=== PATIENT | female | born 1955 | race Caucasian/White ===

== ENCOUNTER 2019-07-19 12:35 | Inpatient (IN) | payer BC, OTHER ==
[~2019-07-19] VITALS: Ht 177.8 cm; Wt 77.1 kg
--- NOTE | 2019-07-19 13:00 | NUR ---
patient BIBRA, per sister, c/o auditory and visual hallucinations. On room air, breathing evenly and unlabored, connected to the monitor and pulse ox. kept comfortable, will continue to monitor accordingly.
[2019-07-19 13:29] LABS: BASOPHILS % (AUTO) 0.7 % (0.0-2.0); EOSINOPHILS % (AUTO) 2.1 % (0.0-6.0); HEMATOCRIT 39 % (33-45); HEMOGLOBIN 12.7 g/dL (11.5-14.8); LYMPHOCYTES # (AUTO) 1.5 /CMM (0.8-4.8); LYMPHOCYTES % (AUTO) 22.6 % (20.0-44.0); MEAN CORPUSCULAR HGB CONC 33 g/dl (31.0-36.0); MEAN CORPUSCULAR VOLUME 86 fL (82-100); MONOCYTES # (AUTO) 0.4 /CMM (0.1-1.30); MONOCYTES % (AUTO) 6.7 % (2.0-12.0); NEUTROPHILS # (AUTO) 4.6 /CMM (1.8-8.9); NEUTROPHILS % (AUTO) 67.9 % (43.0-81.0); PLATELET COUNT (AUTO) 231 /CMM (150-450); RED BLOOD CELL COUNT(AUTO) 4.51 MIL/uL (4.0-5.2); WHITE BLOOD COUNT (AUTO) 6.7 K/uL (4.3-11.0)
[2019-07-19 13:37] LABS: CALCIUM, SERUM 9.5 mg/dL (8.5-10.1); CARBON DIOXIDE 23 mmol/L (21-32); CHLORIDE 107 mmol/L (98-107); CREATININE 0.8 mg/dL (0.6-1.3); GLUCOSE 117 mg/dL (74-106); POTASSIUM 3.3 mmol/L (3.5-5.1); SODIUM SERUM 145 mmol/L (136-145); UREA NITROGEN, BLOOD 18 mg/dL (7-18)
--- NOTE | 2019-07-19 13:39 | NUR ---
sister at bedside.
[2019-07-19 13:44] LABS: ALANINE AMINOTRANSFERASE 22 U/L (12-78); ALCOHOL, BLOOD < 3 mg/dL (0-0); ALKALINE PHOSPHATASE 156 U/L (46-116); ASPARTATE AMINOTRANSFERASE 19 U/L (15-37); BILIRUBIN,DIRECT 0.1 mg/dL (0.0-0.2); BILIRUBIN,TOTAL 0.5 mg/dL (0.2-1.0); SALICYLATE 2.1 mg/dL (2.8-20.0); TOTAL PROTEIN, SERUM 7.3 g/dL (6.4-8.2)
[2019-07-19 13:45] LABS: ACETAMINOPHEN 0 ug/ml (10-30)
[2019-07-19] MEDS ORDERED: LORAZEPAM INJ 2 MG/ML VIAL IM ONE (14:00)
[2019-07-19] MEDS ORDERED: OLANZAPINE 10 MG VIAL IM ONE ×2 (14:00→14:04)
[2019-07-19] MEDS ORDERED: ACETAMINOPHEN ES 500 MG TABLET PO ONE (14:00)
[2019-07-19] MEDS ORDERED: ACETAMINOPHEN ES 500 MG TABLET ONE (14:04)
[2019-07-19] MEDS ORDERED: LORAZEPAM INJ 2 MG/ML VIAL ONE (14:04)
[2019-07-19] MEDS ORDERED: POTASSIUM CHLORIDE 20 MEQ TAB.PRT.SR PO ONE (14:30)
[2019-07-19 14:55] LABS: APPEARANCE,URINE Clear (CLEAR); BILIRUBIN,URINE SMALL (NEGATIVE); BLOOD, URINE Trace-lysed Ery/uL (NEGATIVE); COLOR,URINE Yellow (YELLOW); KETONES,URINE 40 (NEGATIVE); LEUKOCYTE ESTERASE ,URINE Negative (NEGATIVE); NITRITE, URINE Negative (NEGATIVE); PH,URINE 5.5 (5.0-8.0); PROTEIN,URINE Negative (NEGATIVE); UGLUCOSE Negative (NEGATIVE); UROBILINOGEN,URINE 0.2 EU/dL (0.2)
[2019-07-19 14:56] LABS: BACTERIA,URINE Few /HPF (None Seen); SQUAMOUS EPITHELIAL CELL,UR Few /HPF (None Seen)
[2019-07-19] MEDS ORDERED: PREG100C55 PO (16:20)
[2019-07-19] MEDS ORDERED: AMIT100T2 PO (16:20)
[2019-07-19] MEDS ORDERED: ARIP5TAB10 PO (16:20)
[2019-07-19] MEDS ORDERED: SERT100T12 PO (16:20)
[2019-07-19] MEDS ORDERED: DULO60CA64 PO (16:20)
--- NOTE | 2019-07-19 16:28 | NUR ---
STONE consulted with Dawood in intake regarding possible admission to [facility]. Per Dawood she contacted pt's insurance and they will authorize for pt. to be admitted to [facility]. STONE informed NYASIA Urena in ED and spoke with lead applier Matilda regarding involuntary admission to [facility]. STONE also informed Matilda that Dawood in intake has approval from pt's insurance for approval.
--- NOTE | 2019-07-19 18:35 | NUR ---
GOT BED 214-B
--- NOTE | 2019-07-19 19:37 | NUR ---
Report given to Faa RN for brooklynn.
--- NOTE | 2019-07-19 20:30 | NUR ---
PT WAS TRANSFERRED TO [facility] IN STABLE CONDITION
[2019-07-19] MEDS ORDERED: BLOOD SUGAR DIAGNOSTIC 1 EACH STRIP IN ONE (21:00)
[2019-07-19] MEDS ORDERED: MAGNESIUM HYDROXIDE 30 ML UDC PO PRN (21:00)
[2019-07-19] MEDS ORDERED: MAG HYDROX/AL HYDROX/SIMETH 30 ML UDC PO PRN (21:00)
[2019-07-19] MEDS ORDERED: ACETAMINOPHEN 325 MG TABLET PO PRN (21:00)
[2019-07-20 01:50] VITALS: BP 149/78
--- NOTE | 2019-07-20 02:11 | NUR ---
GPS EYEGLASS FRAMES INSPECTOR NOTE: RECEIVED A 63 Y/O FEMALE FROM ER INITIALLY FROM HOME. PT ARRIVED ON THIS UNIT AT 2034 VIA STRETCHER WITH 2 ER ESCORTS. PT ADMITTED ON 5149 FOR GD PLACED 07/19/2019 @ 1735. PER HOLD PT WAS BROUGHT TO ER BY AMBULANCE FOR PSYCHIATRIC EVALUATION BECAUSE PT WANDERED OFF FROM HOME WERE SHE LIVES WITH HER ELDERLY MOTHER IN [place]. PT WAS ACTING BIZARRE, PARANOID AND HALLUCINATING. PT WALKED A LONG DISTANCE FROM HOME TO BED, BATH AND BEYOND STORE AND BEGAN RANTING AND YELLING AT STAFF AND CUSTOMERS. WHEN A NEIGHBOR FRIEND LOCATED PT, SHE COULDN'T RECOGNIZE THE NEIGHBOR, INSTEAD SHE ACCUSED THE NEIGHBOR OF WANTING TO HURT HER. PT ALSO LOCKED HERSELF IN HER BATHROOM AT HOME TALKING TO UNSEEN PEOPLE. PT HAS HISTORY OF MENTAL ILLNESS AND WAS RECENTLY DISCHARGED FROM [facility]. UPON FACE TO FACE EVALUATION, PT PRESENTS A/O X2, APPEARS DEPRESSED, UNCOOPERATIVE, IRRITABLE, LABILE, COMMANDING, NEEDY, RESPONDING TO INTERNAL STIMULI, PARANOID, DISHEVELED, AMBULATORY WITH UNSTEADY GAIT. REPORTS SHE HAS HEARING DIFFICULTY, ASKING STAFF "WHY DID YOU LET ME WALK ON THE STREET WITHOUT SHOES, THIS IS NOT FARE". PT REDIRECTABLE. NO S/S OF ACUTE DISTRESS, DENIES SI, AT THIS TIME. DENIES ANY PAIN OR ANXIETY. WHEN ASKED WHY SHE'S HERE, PT STATED " I DON'T WANT TO BE DISTURBED". PT BREATHING IS EVEN AND UNLABORED WITH EQUAL RISE AND FALL OF THE CHEST WITH SPO2 OF 96%. PT HAS NKA AND IS FULL CODE. PT HISTORY INCLUDES HTN, NERVE PAIN AND PSYCHOSIS. PT REFUSED TO SIGN ADMISSION PAPERS. PT BELONGING AND CONTRABAND WERE CHECKED, PT HAS NO CONTRABAND. PT ADVISED OF HOLD. PT RIGHTS DISCUSSED AND PT HANDBOOK PROVIDED. GUIDE TO PRESCRIPTION MEDICATION GIVEN. PT WILL BE UNDER THE CARE OF DR CAREY PSYCHIATRIST [facility]. PT ORIENTED TO UNIT, STAFF, DOCTORS, CARE PLAN AND UNIT POLICIES. BOTH DOCTORS NOTIFIED OF PT ADMISSION AND MED RECONCILIATION DONE. ACCU CHEK DONE, BS 73, MRSA BOTH NARES DONE AND PLACED FOR LAB COLD HEADER OPERATOR. FALL PRECAUTION INITIATED, SAFETY PRECAUTION INITIATED WITH Q 15MINUTES OBSERVATION. BED IN LOW LOCKED POSITION, SIDE RAILS UP X2. PT NEEDS MET. WILL CONTINUE TO MONITOR FOR SAFETY, MOOD AND BEHAVIOR AND ENDORSE TO AM NURSE.
--- NOTE | 2019-07-20 03:10 | NUR ---
GPS RN NOTE PT WANTS HER HOSPITALIZATION CONFIDENTIAL. SHE DOES NOT WANT ANYONE TO KNOW ABOUT HER ADMISSION. PT EVAL AND WOUND EVAL ORDERED.
[2019-07-20 08:00] VITALS: BP 140/74
--- NOTE | 2019-07-20 10:07 | NUR ---
WOUND CARE CONSULT: PT SCREAMING "GET OUT" AND REFUSING SKIN ASSESSMENT. PER ADMISSION PHOTOS, BRUISING AND DISCOLORATION NOTED TO BUTTOCKS WELL FOOT WOUNDS, PRESENT ON ADMISSION. RECOMMEND DPM CONSULT. DR YANG NOTIFIED OF CONSULT REQUEST. WILL SEE PT PT CONDITION PERMITS. MD IN AGREEMENT WITH PLAN OF CARE.
[2019-07-20] MEDS ORDERED: Z GUARD REMEDY 2 OZ OINT TP PRN (10:30)
--- NOTE | 2019-07-20 11:05 | NUR ---
PODIATRY AND WD NURSE IN TO SEE ALLISON OFTEN WHEN STAFF ENTER RM.
--- NOTE | 2019-07-20 11:33 | NUR ---
REFUSED AM LAB WORK.
--- NOTE | 2019-07-20 13:15 | NUR ---
Family Contact: SW returned the call of the pts sister, Janice ([phone]), and informed her that the pt is in the hospital and that the pt is claiming to be blind and deaf and so the SW was unable to conduct the assessment with her. SW received collateral information from the sister and then went on to discuss discharge planning. SW was informed that the pt lives with her mother but that the mother is unable to care for the pt at this time. Pts sister stated that the family is considering an Assisted Living placement and SW stated that she will assist.
--- NOTE | 2019-07-20 13:30 | NUR ---
Family Contact: Pt refused to have the staff contact her family members but as the pt is on a hold as gravely disabled, per [facility] guidelines, SW may contact the pts family.
--- NOTE | 2019-07-20 15:35 | NUR ---
UR Note: DEMARCUS faxed a clinical to [facility]/ [employer] with attn to Shareena to the fax number: [phone].
[2019-07-20 16:00] VITALS: BP 135/80
--- NOTE | 2019-07-20 16:21 | NUR ---
GROUP NOTE: DEMARCUS encouraged pt to participate in group therapy on this present day discussing "discharge planning." Pt was present and said "I don't want to say anything." Pt then walked away from group. Pt kept coming in and out and was being disruptive towards group. Addendum: 07/20/19 at 1625 by HOLLIE TRACY ERROR NOTE: Addendum: 07/20/19 at 1626 by HOLLIE TRACY Pt not appropriate for group at this time as she is verbally aggressive and spitting at staff, yelling and screaming.
--- NOTE | 2019-07-20 18:30 | NUR ---
YELLING OUT LOUD MOST OF DAY,BELLIGERENT AND NON COMPLIANT,AWAITING TO BE SEEN BY PSYCH. .
--- NOTE | 2019-07-20 19:25 | NUR ---
GPS RN OPENING NOTES PATIENT SITTING ON A CHAIR, ALERT AND ORIENTED X 2. BREATHING REGULAR AND UNLABORED ON ROOM AIR. NO S/S OF PAIN/DISCOMFORT NOTED AT THIS TIME. UNCOOPERATIVE, VERBALLY AGGRESSIVE AND ATTENTION SEEKER. REFUSED MEDICATIONS AND VITAL SIGNS TAKING. WILL CONTINUE TO MONITOR FOR SAFETY AND BEHAVIOR.
[2019-07-20] MEDS: ARIPIPRAZOLE 5 MG TABLET PO SCH (21:30)
--- NOTE | 2019-07-20 21:45 | NUR ---
GPR SN NOTES SEEN AND EXAMINED BY .
--- NOTE | 2019-07-21 01:20 | NUR ---
GPS RN NOTES PATIENT REFUSED DUE ABILIFY, RISK AND BENEFITS EXPLAINED.
--- NOTE | 2019-07-21 06:15 | NUR ---
GPS RN CLOSING NOTES PATIENT IN BED ASLEEP WITH NO S/S OF DISTRESS NOTED. NO S/S OF PAIN/DISCOMFORT OBSERVED. WILL ENDORSE TO MORNING SHIFT FOR CONTINUITY OF CARE.
[2019-07-21] MEDS: ARIPIPRAZOLE 5 MG TABLET PO SCH ×3 (08:26→16:59)
[2019-07-21] MEDS: SERTRALINE HCL 50 MG TABLET PO SCH ×2 (08:28→09:00)
--- NOTE | 2019-07-21 09:12 | NUR ---
Initial Discharge Plan: Pt currently resides in her mothers home with her mother located at [address] [place] [address]; ([phone]). Per pts sister, Janice ([phone]), the family is considering at Assisted Living placement. SW will work with the pt and the MD regarding appropriate discharge planning. SW will form a safe and proper discharge.
--- NOTE | 2019-07-21 09:16 | NUR ---
RN NOTES PATIENT REFUSED AM SCHEDULED MEDICATION, PATIENT STATE "I AM HOW I CAN TAKE MEDICATION". OFFERED X3 STILL REFUSED. DR RUIZ NOTIFIED.
--- NOTE | 2019-07-21 14:48 | NUR ---
Family Contact: Pts sister, Janice ([phone]), called the SW and stated that she is interested in working with a placement agency so the SW referred her to [facility].
--- NOTE | 2019-07-21 14:48 | NUR ---
UR Note: DEMARCUS faxed a clinical to [facility]/ [employer] with attn to Shareena to the fax number: [phone].
--- NOTE | 2019-07-21 15:03 | NUR ---
Group Note: Pt was encouraged to attend group therapy on 07/21/19 at 2pm discussing social supports. Pt appeared to be confused, disoriented and disorganized. Pt was verbally aggressive with the SW and stated that she cannot see or hear anything and so she cannot participate. SW deemed the pt inappropriate for group due to her current state of hao.
[2019-07-21 16:03] LABS: CHOLESTEROL 262 mg/dL (<200); HDL CHOLESTEROL 46 mg/dL (40-60); LDL 174 mg/dL (0-99); TRIGLYCERIDES 238 mg/dL (30-150)
[2019-07-21] MEDS: DIVALPROEX SODIUM 125 MG CAP.SPRINK PO SCH (16:59)
[2019-07-21] MEDS ORDERED: DIVALPROEX SODIUM 250 MG TABLET.DR PO SCH (17:00)
[2019-07-21 20:00] VITALS: BP 146/77
[2019-07-21] MEDS: LORAZEPAM 0.5 MG TABLET PO PRN (20:31)
[2019-07-21] MEDS: PREGABALIN 100 MG CAPSULE PO SCH (21:11)
[2019-07-22 06:59] LABS: CREATININE 0.6 mg/dL (0.6-1.3); POTASSIUM 3.5 mmol/L (3.5-5.1)
[2019-07-22 08:00] VITALS: BP 120/65
[2019-07-22] MEDS: PREGABALIN 100 MG CAPSULE PO SCH ×3 (08:15→16:28)
[2019-07-22] MEDS: ARIPIPRAZOLE 5 MG TABLET PO SCH ×2 (08:15→16:28)
[2019-07-22] MEDS: DIVALPROEX SODIUM 125 MG CAP.SPRINK PO SCH ×3 (08:15→16:28)
[2019-07-22] MEDS: SERTRALINE HCL 50 MG TABLET PO SCH (08:15)
[2019-07-22] MEDS: LORAZEPAM 0.5 MG TABLET PO PRN ×2 (10:27→20:12)
--- NOTE | 2019-07-22 11:48 | NUR ---
UR Note: DEMARCUS faxed a clinical to [facility]/ [employer] with attn to Shareena to the fax number: [phone].
--- NOTE | 2019-07-22 14:12 | NUR ---
UR Note: DEMARCUS called [employer] Patient Accounts Specialist, Natividad Ness ([phone]), and informed her that the pt is going to be on a 5250 hold as of 5:30pm today and the SW will be gone so she can send the order on Thursday.
[2019-07-22 16:00] VITALS: BP 136/72
--- NOTE | 2019-07-22 20:13 | NUR ---
GPS RN NOTE: ANXIETY PATIENT VERBALIZED THAT SHE IS FEELING ANXIOUS & RESTLESS AT THIS TIME. PT. REQUESTED TO GET ATIVAN. PRN ATIVAN 0.5 MG 1 TAB PO GIVEN.
[2019-07-22 20:54] VITALS: BP 125/68
[2019-07-22] MEDS: ATORVASTATIN 10 MG TABLET PO SCH (21:51)
[2019-07-23] MEDS: TEMAZEPAM 7.5 MG CAPSULE PO PRN ×2 (01:28→22:53)
--- NOTE | 2019-07-23 01:30 | NUR ---
GPS RN NOTE: INSOMNIA PATIENT VERBALIZED THAT SHE IS UNABLE TO SLEEP & REQUESTED TO GET SLEEPING PILL. PRN RESTORIL 7.5 MG 1 CAP PO GIVEN. WILL REASSESS FOR EFFECTIVENESS.
[2019-07-23 08:00] VITALS: BP 141/73
[2019-07-23] MEDS: SERTRALINE HCL 50 MG TABLET PO SCH (08:45)
[2019-07-23] MEDS: PREGABALIN 100 MG CAPSULE PO SCH ×3 (08:46→17:08)
[2019-07-23] MEDS: DIVALPROEX SODIUM 125 MG CAP.SPRINK PO SCH ×3 (08:46→17:08)
[2019-07-23] MEDS: ARIPIPRAZOLE 5 MG TABLET PO SCH ×2 (08:46→17:08)
[2019-07-23] MEDS: LORAZEPAM 0.5 MG TABLET PO PRN (12:07)
--- NOTE | 2019-07-23 12:10 | NUR ---
GIVEN ATIVAN 0.5 MG PO FOR NERVOUSNESS.
[2019-07-23 16:00] VITALS: BP 134/77
--- NOTE | 2019-07-23 18:16 | NUR ---
VERY COOPERATIVE AND AGREEABLE TODAY.
[2019-07-23 20:06] VITALS: BP 133/87
[2019-07-23] MEDS: ATORVASTATIN 10 MG TABLET PO SCH (21:43)
[2019-07-24 08:00] VITALS: BP 128/74
[2019-07-24] MEDS: PREGABALIN 100 MG CAPSULE PO SCH ×3 (08:25→16:14)
[2019-07-24] MEDS: SERTRALINE HCL 50 MG TABLET PO SCH (08:25)
[2019-07-24] MEDS: LORAZEPAM 0.5 MG TABLET PO PRN (08:25)
[2019-07-24] MEDS: ARIPIPRAZOLE 5 MG TABLET PO SCH ×2 (08:25→16:14)
[2019-07-24] MEDS: DIVALPROEX SODIUM 125 MG CAP.SPRINK PO SCH ×3 (08:25→16:14)
--- NOTE | 2019-07-24 09:41 | NUR ---
GPS RN NOTE: RECEIVED PATENT IN THE ROOM AMBULATORY WITH WALKER DENIES SI/HI COMPLIANT WITH MEDICATIONS AND TX PT FEELING ANXIOUS AT THIS TIME ATIVAN 0.5 MG PO PRN GIVEN PATIENT ALERT AND ORIENTEDX2.DISORGANIZE.VS STABLE. NO ACUTE DISTRESS.WILL MONITOR Q 15 MINUTES FOR SAFETY AND BEHAVIOR.
[2019-07-24 16:00] VITALS: BP 117/64
[2019-07-24 20:25] VITALS: BP 139/85
[2019-07-24] MEDS: ATORVASTATIN 10 MG TABLET PO SCH (21:12)
[2019-07-24] MEDS: TEMAZEPAM 7.5 MG CAPSULE PO PRN (21:12)
--- NOTE | 2019-07-24 21:13 | NUR ---
MS/RN NOTES Patient in bed, unable to sleep. Requested for Sleeping medication. Restoril 1 tab given as ordered. Will continue plan of care.
[2019-07-25] MEDS: LORAZEPAM 0.5 MG TABLET PO PRN ×2 (07:41→17:18)
--- NOTE | 2019-07-25 07:41 | NUR ---
RN NOTE- AGITATION/ PT W ANXIETY. REQUESTING PRN MEDE. ATIVAN 0.5 MG GIVEN
[2019-07-25 08:00] VITALS: BP 149/72
[2019-07-25] MEDS: SERTRALINE HCL 50 MG TABLET PO SCH (08:24)
[2019-07-25] MEDS: DIVALPROEX SODIUM 125 MG CAP.SPRINK PO SCH ×3 (08:25→16:29)
[2019-07-25] MEDS: ARIPIPRAZOLE 5 MG TABLET PO SCH ×2 (08:25→16:29)
[2019-07-25] MEDS: PREGABALIN 100 MG CAPSULE PO SCH ×3 (08:25→16:28)
--- NOTE | 2019-07-25 09:00 | NUR ---
RN NOTE-PT ANXIOUS AT TIMES AND IRRITABLE. RECEIVED PAITENT IN THE ROOM AMBULATORY WITH WALKER DENIES SI/HI COMPLIANT WITH MEDICATIONS AND TX PATIENT ALERT AND ORIENTEDX2. DISORGANIZED VS STABLE. NO ACUTE DISTRESS.WILL MONITOR Q 15 MINUTES FOR SAFETY AND BEHAVIOR.
--- NOTE | 2019-07-25 09:15 | NUR ---
UR Note: DEMARCUS faxed a clinical to [facility]/ [employer] with attn to Shareena to the fax number: [phone].
[2019-07-25] MEDS: IBUPROFEN 600 MG TABLET PO PRN (13:34)
--- NOTE | 2019-07-25 13:34 | NUR ---
RN NOTE- PAIN. PT C/O GENERALIZED PAIN 7-10. IBUPROFEN 600 MG [id number]
--- NOTE | 2019-07-25 14:45 | NUR ---
RN NOTE- RX EFFECTIVE AT DECREASING PAIN
[2019-07-25 16:00] VITALS: BP 150/90
--- NOTE | 2019-07-25 17:20 | NUR ---
RN NOTE-AGITATION/ PT W ANXIETY. ATIVAN 0.5 MG GIVEN
--- NOTE | 2019-07-25 19:15 | NUR ---
GPS RN opening notes Received Pt in bed and awake. Pt is alert and orientedX2, anxious, restless, disorganized, hyperverbal, confused and med compliant. Respiration is normal. No SOB. No S/S of distress noted. Offered fluids and snacks. Pt denies SI/HI at this time. Reality orientation provided. Safety precautions is maintained. Will continue to monitor for mood safety and behavior Q 15 mins checks according to [facility] hospital protocol.
[2019-07-25 20:00] VITALS: BP 131/88
[2019-07-25 20:04] VITALS: BP 131/88
--- NOTE | 2019-07-25 21:11 | NUR ---
GPS RN notes Pt will be Discharge on Thursday per Dr. Brown. Charge nurse is aware and informed.
[2019-07-25] MEDS: ATORVASTATIN 10 MG TABLET PO SCH (21:35)
[2019-07-25] MEDS: TEMAZEPAM 7.5 MG CAPSULE PO PRN (22:24)
--- NOTE | 2019-07-25 22:24 | NUR ---
GPS RN notes Pt is unable to sleep and requesting sleeping pill. Administered restoril 7.5 mg/po/1 tab as ordered for sleeping. Safety precautions is maintained. Will continue to monitor.
--- NOTE | 2019-07-26 05:00 | NUR ---
GPS RN notes Noted Pt's sacral redness. Pt stated "Police did it not the hospital." Cleaned with NS, applied z-guard. Wound care consult ordered. Will continue to monitor.
[2019-07-26] MEDS: IBUPROFEN 600 MG TABLET PO PRN ×2 (05:28→18:54)
[2019-07-26] MEDS: LORAZEPAM 0.5 MG TABLET PO PRN ×3 (05:28→18:54)
--- NOTE | 2019-07-26 05:28 | NUR ---
GPS RN notes Pt is feeling anxious and requesting medication. Administered Ativan 0.5 mg/1 tab/po as ordered for anxiety. Safety precautions is maintained. Will continue to monitor.
--- NOTE | 2019-07-26 05:29 | NUR ---
GPS RN notes Pt is complaining of pain on right lower leg and left ankle and requesting pain meds. Administered motrin 600 mg as ordered for pain. Will continue to monitor.
--- NOTE | 2019-07-26 07:00 | NUR ---
GPS RN closing notes Pt is resting in bed comfortably. Respiration is normal. No SOB. No S/S of distress noted. VS is stable. Routine meds were given as ordered. Kept Pt clean, dry and comfortable. All needs met and attended. Safety precautions is maintained. Bed at low position, brakes locked, side rails upX2. Will endorse to morning nurse for ALANA.
[2019-07-26 08:00] VITALS: BP 128/78
[2019-07-26] MEDS: DIVALPROEX SODIUM 125 MG CAP.SPRINK PO SCH ×3 (08:43→16:33)
[2019-07-26] MEDS: PREGABALIN 100 MG CAPSULE PO SCH ×3 (08:43→16:33)
[2019-07-26] MEDS: ARIPIPRAZOLE 5 MG TABLET PO SCH ×2 (08:43→16:33)
[2019-07-26] MEDS: SERTRALINE HCL 50 MG TABLET PO SCH (08:44)
[2019-07-26] MEDS: Z GUARD REMEDY 2 OZ OINT TP SCH ×2 (08:44→16:33)
--- NOTE | 2019-07-26 09:19 | NUR ---
WOUND CARE CONSULT: PT PRESENTS WITH DRY LESION TO RT BUTTOCK. PT DENIES TENDERNESS. RN TO DISCUSS WITH MD TODAY. DISCUSSED WITH NURSING STAFF AND SLOT OPERATIONS DIRECTOR. PHOTO WAS TAKEN. FADING BRUISES ALSO NOTED TO BUTTOCKS, LEFT WAIST AREA, PRESENT ON ADMISSION. DEFER TO PODIATRY FOR LOWER EXTREMITIES. PT IS CONTINENT AND AMBULATORY. WILL SEE PRN.
--- NOTE | 2019-07-26 10:11 | NUR ---
GPS RN OPENING NOTE: RECEIVED PATIENT IN THE ROOM AMBULATORY WITH WALKER DENIES SI/HI COMPLIANT WITH MEDICATIONS. PATIENT IS DISORGANZIED. BRIGHT AFFECT. HARD OF HEARING. VSS. BREATHING EVEN AND UNLABORED. ENVIRONMENTAL CHECKS DONE AND SAFETY PRECAUTIONS OBSERVED. WILL CONTINUE TO MONITOR Q15 FOR MOOD, SAFETY AND BEHAVIOR
--- NOTE | 2019-07-26 10:15 | NUR ---
UR Note: DEMARCUS faxed a clinical to [facility]/ [employer] with attn to Shareena to the fax number: [phone].
--- NOTE | 2019-07-26 10:16 | NUR ---
Family Contact: SW called the pts sister, Janice ([phone]), and left her a voicemail stating that the pt will have to be discharged home tomorrow and that we cannot place her in an Assisted Living without her permission when her funds would be used towards the placement.
--- NOTE | 2019-07-26 14:25 | NUR ---
Family Contact: DEMARCUS called the pts sister, Janice ([phone]), and left her a voicemail stating that the pt will have to be discharged home tomorrow.
--- NOTE | 2019-07-26 14:37 | NUR ---
Family Contact: SW called the pts home number ([phone]) and spoke to the pts mother who stated that she would inform the pts sister about the discharge tomorrow. DEMARCUS stated that the pt will be going home and that the SW needs to know about the discharge plan.
[2019-07-26 16:00] VITALS: BP 124/63
--- NOTE | 2019-07-26 16:01 | NUR ---
Group Note: SW encouraged pt to attend group therapy on 07/26/19 at 2pm discussing reality testing regarding their admission. Pt stated that she did not want to participate because she is deaf and blind. She stated that she is being discharged the following day and therefore she would like to remain in her room.
--- NOTE | 2019-07-26 21:30 | NUR ---
RN NOTES Pt REFUSED FOR VITAL SIGNS TO BE TAKEN.
--- NOTE | 2019-07-26 21:50 | NUR ---
RN NOTES AT CHANGE OF SHIFT Pt REQUESTED FOR A SLEEPING PILL FOR EMY, SAYING SHE HASN'T HAD ANY SLEEP FOR THE PAST 4 DAYS. WHEN I CAME INTO THER ROOM TO GIVE HER NIGHT MEDS, Pt WAS ALREADY ASLEEP. HAD TO WAKE Pt UP TO GIVE HER SCHEDULED LIPITOR, AND ASKED HER IF SHE STILL WANTED HER SLEEPING PILL, AND SHE SAID "NO I THINK I WILL BE FINE WITHOUT IT, I WAS ACTUALLY SLEEPING PRETTY GOOD." SO I RETURNED THE RESTORIL BACK TO THE [facility] WITH TRAM CARIAS MY WITNESS.
[2019-07-26] MEDS: ATORVASTATIN 10 MG TABLET PO SCH (22:13)
[2019-07-26] MEDS: TEMAZEPAM 7.5 MG CAPSULE PO PRN (23:04)
--- NOTE | 2019-07-26 23:10 | NUR ---
RN NOTES Pt CHANGED HER MIND ABOUT THE RESTORIL AND WAS ASKING FOR IT AGAIN, SAID THAT ONCE I WOKE HER UP SHE WASN'T ABLE TO FALL BACK ASLEEP.
[2019-07-27 08:00] VITALS: BP 132/79
--- NOTE | 2019-07-27 08:05 | NUR ---
Discharge Plan: SW was told by the nurses that the pts sister called the previous night after the SW had left and had stated that the pt will be picked up around 7pm.
[2019-07-27] MEDS: DIVALPROEX SODIUM 125 MG CAP.SPRINK PO SCH ×3 (08:50→16:45)
[2019-07-27] MEDS: LORAZEPAM 0.5 MG TABLET PO PRN ×2 (08:50→15:23)
[2019-07-27] MEDS: SERTRALINE HCL 50 MG TABLET PO SCH (08:50)
[2019-07-27] MEDS: ARIPIPRAZOLE 5 MG TABLET PO SCH ×2 (08:50→16:45)
[2019-07-27] MEDS: PREGABALIN 100 MG CAPSULE PO SCH ×3 (08:50→16:45)
[2019-07-27] MEDS: IBUPROFEN 600 MG TABLET PO PRN (08:50)
[2019-07-27] MEDS: Z GUARD REMEDY 2 OZ OINT TP SCH ×2 (08:51→16:52)
--- NOTE | 2019-07-27 09:42 | NUR ---
GPS RN OPENING NOTE: RECEIVED PAITENT IN THE ROOM AMBULATORY WITH WALKER DENIES SI/HI COMPLIANT WITH MEDICATIONS. PATIENT IS DISORGANZIED. BRIGHT AFFECT. HARD OF HEARING. VSS. BREATHING EVEN AND UNLABORED. ENVIRONMENTAL CHECKS DONE AND SAFETY PRECAUTIONS OBSERVED.D/C PLANNED FOR TODAY AROUND 1900. WILL CONTINUE TO MONITOR Q15 FOR MOOD, SAFETY AND BEHAVIOR
--- NOTE | 2019-07-27 10:57 | NUR ---
UR Note: DEMARCUS called [employer] Logistic Specialist, Natividad Ness ([phone]), and informed her that the pt is going to be discharged today and that the SW was wondering if the pt has a psychiatrist through their coverage. DEMARCUS asked for a return call.
--- NOTE | 2019-07-27 11:16 | NUR ---
DR. CAREY GAVE AN ORDER TO D/C HOLD AND D/C HOME AND TO FOLLOW UP WITH PSYCH AND MEDICAL DOCTORS.
--- NOTE | 2019-07-27 11:29 | NUR ---
UR Note: [employer] Validation Specialist, Natividad Ness ([phone]), called the SW and provided her with the aftercare appointments for the pt.
--- NOTE | 2019-07-27 11:31 | NUR ---
UR Note: DEMARCUS faxed a clinical to [facility]/ [employer] with attn to Shareena to the fax number: [phone].
--- NOTE | 2019-07-27 14:13 | NUR ---
Discharge Note: Pt was discharged to her mothers home located at [address], [address] [facility] [address], [place] [address]; ([phone]). Pts sister, Janice ([phone]), was contacted about the discharge and she picked up the pt at 7pm. Upon discharge, the pt appeared to be in a euthymic mood and presented with an agitated affect. Pt appeared to be oriented x3 (time, self and place). Pt denied both suicidal and homicidal ideation as well as auditory and visual hallucinations. Pt will follow up her psychiatrist, Dr. Ramiro Larose, located at [address] [place] [address]; . Pt has an appointment on 10/04/19 at 3:30pm. Pt will also follow up with her template clerk, Dr. Catie Tuttle, located at [id number] [place] [address] [address], [place] [address]; ([phone]); and a fax of records was sent to: ([phone]). Pt has an appointment on 08/09/19 at 1pm.
[2019-07-27 16:00] VITALS: BP 143/79
--- NOTE | 2019-07-27 19:28 | NUR ---
GPS TECHNOLOGY SERVICES MANAGER NOTE: PATIENT IS A 63 YEAR OLD FEMALE DISCHARGED TO HOME. PATIENT IS IN STABLE CONDITION. VSS. NO ACUTE DISTRESS NOTED. NO COMPLAINTS. COMPLIANT WITH MEDICATION MANAGEMENT. COOPERATIVE WITH PLAN OF CARE. PSYCHIATRIC TREATMENT PLANS MET. MEDICAL TREATMENT PLANS DEFERRED FOR CONTINUAL MONITORING. DENIES SI/HI VAH AT THE TIME OF DISCHARGE. SKIN CHECK DONE WITH WOUND PICTURES IN CHART. EDUCATED PATIENT ABOUT AFTERCARE WITH COPY PROVIDED. RETURNED PERSONAL BELONGINGS TO PATIENT. MEDICATIONS RECONCILED WITH DR CAREY ALONG WITH PSYCHIATRIC DISCHARGE ORDERS. MEDICAL MEDICATIONS RECONCILED WITH DR LENZ. DISCHARGE PAPERWORK SIGNED. FOR FOLLOW UP WITH PSYCHIATRIST AND CONCESSION WORKER WITHIN 1 WEEK. PATIENT LEFT THE [facility] VIA PRIVATE CAR ACCOMPANIED BY SISTER FOR ALANA
== END 2019-07-27 20:29 | disposition home or self-care (01) | DRG 885 ==
LOC: ER 12:37 → GPS 18:43
PROVIDERS: ADMIT Psychiatry & Neurology Psychiatry; ATTEND Nurse Practitioner Acute Care
DX: F25.9 Schizoaffective disorder, unspecified (principal); I10 Essential (primary) hypertension; E78.5 Hyperlipidemia, unspecified; E87.6 Hypokalemia; M20.41 Other hammer toe(s) (acquired), right foot; M20.42 Other hammer toe(s) (acquired), left foot; H91.90 Unspecified hearing loss, unspecified ear; Z73.6 Limitation of activities due to disability; R23.4 Changes in skin texture; L89.896 Pressure-induced deep tissue damage of other site
CPT/HCPCS: 36415; 80048-TC; 80061-TC; 80076-TC; 80164-TC; 80305; 81000-TC; 82962-TC; 85025-TC; 87081-TC; G0480; J2060; J3490

== ENCOUNTER 2019-08-01 18:03 | Inpatient (IN) | payer BC, OTHER ==
[~2019-08-01] VITALS: Ht 165.1 cm; Wt 77.1 kg
[~2019-08-01 18:03] MED LIST: PREG100C55 PO
[2019-08-01 18:32] LABS: BASOPHILS # (AUTO) 0.1 /CMM (0.0-0.2); BASOPHILS % (AUTO) 1.1 % (0.0-2.0); EOSINOPHILS % (AUTO) 1.2 % (0.0-6.0); HEMATOCRIT 37 % (33-45); HEMOGLOBIN 11.9 g/dL (11.5-14.8); LYMPHOCYTES # (AUTO) 1.8 /CMM (0.8-4.8); LYMPHOCYTES % (AUTO) 31.9 % (20.0-44.0); MEAN CORPUSCULAR HGB CONC 32 g/dl (31.0-36.0); MEAN CORPUSCULAR VOLUME 87 fL (82-100); MONOCYTES # (AUTO) 0.5 /CMM (0.1-1.30); MONOCYTES % (AUTO) 8.7 % (2.0-12.0); NEUTROPHILS # (AUTO) 3.3 /CMM (1.8-8.9); NEUTROPHILS % (AUTO) 57.1 % (43.0-81.0); PLATELET COUNT (AUTO) 220 /CMM (150-450); RED BLOOD CELL COUNT(AUTO) 4.22 MIL/uL (4.0-5.2); WHITE BLOOD COUNT (AUTO) 5.8 K/uL (4.3-11.0)
[2019-08-01 19:14] LABS: ALANINE AMINOTRANSFERASE 24 U/L (12-78); ALBUMIN 3.5 g/dL (3.4-5.0); ALCOHOL, BLOOD < 3 mg/dL (0-0); ALKALINE PHOSPHATASE 114 U/L (46-116); ASPARTATE AMINOTRANSFERASE 28 U/L (15-37); BILIRUBIN,DIRECT 0.1 mg/dL (0.0-0.2); BILIRUBIN,TOTAL 0.4 mg/dL (0.2-1.0); CALCIUM, SERUM 8.7 mg/dL (8.5-10.1); CARBON DIOXIDE 25 mmol/L (21-32); CHLORIDE 109 mmol/L (98-107); CREATININE 0.9 mg/dL (0.6-1.3); GLUCOSE 101 mg/dL (74-106); POTASSIUM 3.7 mmol/L (3.5-5.1); SODIUM SERUM 145 mmol/L (136-145); TOTAL PROTEIN, SERUM 6.6 g/dL (6.4-8.2); UREA NITROGEN, BLOOD 10 mg/dL (7-18)
[2019-08-01 19:29] LABS: ACETAMINOPHEN < 2 ug/ml (10-30); SALICYLATE 1.6 mg/dL (2.8-20.0)
[2019-08-01 19:35] LABS: APPEARANCE,URINE Clear (CLEAR); BILIRUBIN,URINE Negative (NEGATIVE); BLOOD, URINE Negative Ery/uL (NEGATIVE); COLOR,URINE Yellow (YELLOW); KETONES,URINE Negative (NEGATIVE); LEUKOCYTE ESTERASE ,URINE Negative (NEGATIVE); NITRITE, URINE Negative (NEGATIVE); PROTEIN,URINE Negative (NEGATIVE); UGLUCOSE Negative (NEGATIVE); UROBILINOGEN,URINE 0.2 EU/dL (0.2)
[2019-08-01] MEDS ORDERED: IV NS 0.9% 1,000 ML BAG IV ONE (20:30)
[2019-08-01] MEDS ORDERED: DIVALPROEX SODIUM 250 MG TABLET.DR PO STA (22:34)
[2019-08-01] MEDS ORDERED: ARIPIPRAZOLE 2 MG TABLET ONE (22:40)
[2019-08-01] MEDS ORDERED: DIVALPROEX SODIUM 250 MG TABLET.DR PO ONE (22:40)
[2019-08-01] MEDS ORDERED: LORAZEPAM INJ 2 MG/ML VIAL ONE (22:46)
[2019-08-01] MEDS ORDERED: LORAZEPAM INJ 2 MG/ML VIAL IM STA (22:50)
[2019-08-01] MEDS: ARIPIPRAZOLE 5 MG TABLET PO SCH (22:51)
[2019-08-01] MEDS ORDERED: OLANZAPINE 10 MG VIAL IM ONE ×2 (23:06→23:30)
[2019-08-02] MEDS ORDERED: MAGNESIUM HYDROXIDE 30 ML UDC PO PRN
[2019-08-02] MEDS ORDERED: ACETAMINOPHEN 325 MG TABLET PO PRN
[2019-08-02] MEDS ORDERED: BLOOD SUGAR DIAGNOSTIC 1 EACH STRIP IN ONE
[2019-08-02] MEDS ORDERED: MAG HYDROX/AL HYDROX/SIMETH 30 ML UDC PO PRN
[2019-08-02 03:00] VITALS: BP 130/74
[2019-08-02 06:45] LABS: BASOPHILS % (AUTO) 0.6 % (0.0-2.0); EOSINOPHILS % (AUTO) 0.7 % (0.0-6.0); HEMATOCRIT 38 % (33-45); HEMOGLOBIN 12.3 g/dL (11.5-14.8); LYMPHOCYTES % (AUTO) 37.4 % (20.0-44.0); MEAN CORPUSCULAR HGB CONC 33 g/dl (31.0-36.0); MEAN CORPUSCULAR VOLUME 87 fL (82-100); MONOCYTES # (AUTO) 0.6 /CMM (0.1-1.30); MONOCYTES % (AUTO) 10.1 % (2.0-12.0); NEUTROPHILS # (AUTO) 2.8 /CMM (1.8-8.9); NEUTROPHILS % (AUTO) 51.2 % (43.0-81.0); PLATELET COUNT (AUTO) 198 /CMM (150-450); RED BLOOD CELL COUNT(AUTO) 4.31 MIL/uL (4.0-5.2); WHITE BLOOD COUNT (AUTO) 5.5 K/uL (4.3-11.0)
[2019-08-02 07:15] LABS: ALBUMIN 3.4 g/dL (3.4-5.0); BILIRUBIN,TOTAL 0.3 mg/dL (0.2-1.0); CALCIUM, SERUM 8.4 mg/dL (8.5-10.1); CREATININE 0.9 mg/dL (0.6-1.3); POTASSIUM 3.7 mmol/L (3.5-5.1); TOTAL PROTEIN, SERUM 6.4 g/dL (6.4-8.2)
[2019-08-02 08:00] VITALS: BP 109/62
[2019-08-02] MEDS: ARIPIPRAZOLE 5 MG TABLET PO SCH ×2 (08:47→17:00)
[2019-08-02] MEDS ORDERED: ATOR20TA PO (09:40)
[2019-08-02] MEDS: PREGABALIN 100 MG CAPSULE PO SCH ×2 (12:02→17:01)
[2019-08-02] MEDS: SERTRALINE HCL 50 MG TABLET PO SCH (17:00)
[2019-08-02] MEDS: DIVALPROEX SODIUM 250 MG TABLET.DR PO SCH (17:01)
[2019-08-02] MEDS: ATORVASTATIN 10 MG TABLET PO SCH (17:01)
[2019-08-02] MEDS: IBUPROFEN 600 MG TABLET PO PRN (17:01)
[2019-08-02] MEDS: LORAZEPAM 0.5 MG TABLET PO PRN (18:34)
[2019-08-02 20:30] VITALS: BP 129/75
[2019-08-03 08:00] VITALS: BP 111/63
[2019-08-03] MEDS: ARIPIPRAZOLE 5 MG TABLET PO SCH ×2 (08:31→17:03)
[2019-08-03] MEDS: PREGABALIN 100 MG CAPSULE PO SCH ×3 (08:31→17:03)
[2019-08-03] MEDS: DIVALPROEX SODIUM 250 MG TABLET.DR PO SCH ×3 (08:31→17:03)
[2019-08-03] MEDS: SERTRALINE HCL 50 MG TABLET PO SCH (08:32)
[2019-08-03] MEDS: LORAZEPAM 0.5 MG TABLET PO PRN ×2 (08:35→20:14)
[2019-08-03 16:00] VITALS: BP 117/71
[2019-08-03] MEDS: ATORVASTATIN 10 MG TABLET PO SCH (17:05)
[2019-08-03 20:00] VITALS: BP 119/70
[2019-08-03] MEDS: TEMAZEPAM 7.5 MG CAPSULE PO PRN (22:54)
[2019-08-04] MEDS: ARIPIPRAZOLE 5 MG TABLET PO SCH ×2 (08:33→16:20)
[2019-08-04] MEDS: PREGABALIN 100 MG CAPSULE PO SCH ×3 (08:33→16:20)
[2019-08-04] MEDS: DIVALPROEX SODIUM 250 MG TABLET.DR PO SCH ×3 (08:33→16:21)
[2019-08-04] MEDS: SERTRALINE HCL 50 MG TABLET PO SCH (08:33)
[2019-08-04] MEDS: LORAZEPAM 0.5 MG TABLET PO PRN ×2 (09:17→16:25)
[2019-08-04 16:00] VITALS: BP 134/75
[2019-08-04] MEDS: ATORVASTATIN 10 MG TABLET PO SCH (17:02)
[2019-08-05 08:00] VITALS: BP 139/84
[2019-08-05] MEDS: PREGABALIN 100 MG CAPSULE PO SCH ×3 (08:20→16:14)
[2019-08-05] MEDS: SERTRALINE HCL 50 MG TABLET PO SCH (08:20)
[2019-08-05] MEDS: DIVALPROEX SODIUM 250 MG TABLET.DR PO SCH ×3 (08:20→16:14)
[2019-08-05] MEDS: ARIPIPRAZOLE 5 MG TABLET PO SCH ×2 (08:22→16:14)
[2019-08-05] MEDS: LORAZEPAM 0.5 MG TABLET PO PRN ×2 (08:42→16:29)
[2019-08-05 15:58] VITALS: BP 129/66
[2019-08-05] MEDS: ATORVASTATIN 10 MG TABLET PO SCH (17:26)
[2019-08-05 20:35] VITALS: BP 119/60
[2019-08-05] MEDS: TEMAZEPAM 7.5 MG CAPSULE PO PRN (22:20)
[2019-08-06] MEDS: LORAZEPAM 0.5 MG TABLET PO PRN ×3 (04:40→19:55)
[2019-08-06 08:00] VITALS: BP 131/76
[2019-08-06] MEDS: SERTRALINE HCL 50 MG TABLET PO SCH (08:51)
[2019-08-06] MEDS: PREGABALIN 100 MG CAPSULE PO SCH ×3 (08:51→16:11)
[2019-08-06] MEDS: DIVALPROEX SODIUM 250 MG TABLET.DR PO SCH ×3 (08:51→16:11)
[2019-08-06] MEDS: ARIPIPRAZOLE 5 MG TABLET PO SCH ×2 (08:54→16:15)
[2019-08-06 16:00] VITALS: BP 137/84
[2019-08-06] MEDS: ATORVASTATIN 10 MG TABLET PO SCH (17:19)
[2019-08-06 21:15] VITALS: BP 128/78
[2019-08-06] MEDS: TEMAZEPAM 7.5 MG CAPSULE PO PRN (23:25)
[2019-08-07] MEDS: IBUPROFEN 600 MG TABLET PO PRN (03:57)
[2019-08-07 08:00] VITALS: BP 127/66
[2019-08-07] MEDS: PREGABALIN 100 MG CAPSULE PO SCH ×3 (09:31→17:25)
[2019-08-07] MEDS: DIVALPROEX SODIUM 250 MG TABLET.DR PO SCH ×3 (09:31→17:25)
[2019-08-07] MEDS: SERTRALINE HCL 50 MG TABLET PO SCH (09:31)
[2019-08-07] MEDS: ARIPIPRAZOLE 5 MG TABLET PO SCH ×2 (09:31→17:25)
[2019-08-07] MEDS: LORAZEPAM 0.5 MG TABLET PO PRN ×2 (10:17→20:12)
[2019-08-07 16:00] VITALS: BP 136/70
[2019-08-07] MEDS: ATORVASTATIN 10 MG TABLET PO SCH (17:25)
[2019-08-07 20:22] VITALS: BP 152/84
[2019-08-07] MEDS: TEMAZEPAM 7.5 MG CAPSULE PO PRN (22:15)
[2019-08-08] MEDS: IBUPROFEN 600 MG TABLET PO PRN (01:40)
[2019-08-08] MEDS: LORAZEPAM 0.5 MG TABLET PO PRN ×2 (06:54→12:35)
[2019-08-08 08:00] VITALS: BP 142/88
[2019-08-08] MEDS: ARIPIPRAZOLE 5 MG TABLET PO SCH ×2 (08:46→17:03)
[2019-08-08] MEDS: DIVALPROEX SODIUM 250 MG TABLET.DR PO SCH ×3 (08:46→17:03)
[2019-08-08] MEDS: SERTRALINE HCL 50 MG TABLET PO SCH (08:46)
[2019-08-08] MEDS: PREGABALIN 100 MG CAPSULE PO SCH ×3 (08:46→17:03)
[2019-08-08 16:00] VITALS: BP 154/99
[2019-08-08] MEDS: ATORVASTATIN 10 MG TABLET PO SCH (17:03)
[2019-08-08 20:59] VITALS: BP 145/72
[2019-08-08] MEDS: TEMAZEPAM 7.5 MG CAPSULE PO PRN (21:46)
[2019-08-09] MEDS: IBUPROFEN 600 MG TABLET PO PRN ×2 (04:52→20:47)
[2019-08-09 08:00] VITALS: BP 119/73
[2019-08-09] MEDS: PREGABALIN 100 MG CAPSULE PO SCH ×3 (09:09→17:51)
[2019-08-09] MEDS: DIVALPROEX SODIUM 250 MG TABLET.DR PO SCH ×3 (09:09→17:51)
[2019-08-09] MEDS: SERTRALINE HCL 50 MG TABLET PO SCH (09:12)
[2019-08-09] MEDS: ARIPIPRAZOLE 5 MG TABLET PO SCH ×2 (09:12→17:51)
[2019-08-09] MEDS: LORAZEPAM 0.5 MG TABLET PO PRN (10:48)
[2019-08-09 16:00] VITALS: BP 122/59
[2019-08-09] MEDS: ATORVASTATIN 10 MG TABLET PO SCH (17:52)
[2019-08-09 21:23] VITALS: BP 147/89
[2019-08-10] MEDS: IBUPROFEN 600 MG TABLET PO PRN ×2 (05:01→22:57)
[2019-08-10 08:00] VITALS: BP 151/86
[2019-08-10] MEDS: PREGABALIN 100 MG CAPSULE PO SCH ×3 (08:51→16:59)
[2019-08-10] MEDS: SERTRALINE HCL 50 MG TABLET PO SCH (08:52)
[2019-08-10] MEDS: DIVALPROEX SODIUM 250 MG TABLET.DR PO SCH ×3 (08:52→16:59)
[2019-08-10] MEDS: ARIPIPRAZOLE 5 MG TABLET PO SCH ×2 (08:53→16:59)
[2019-08-10] MEDS: LORAZEPAM 0.5 MG TABLET PO PRN (15:11)
[2019-08-10 16:00] VITALS: BP 121/64
[2019-08-10] MEDS: ATORVASTATIN 10 MG TABLET PO SCH (18:29)
[2019-08-10 20:07] VITALS: BP 112/67
[2019-08-11] MEDS: IBUPROFEN 600 MG TABLET PO PRN ×2 (07:04→16:43)
[2019-08-11 08:00] VITALS: BP 106/75
[2019-08-11] MEDS: PREGABALIN 100 MG CAPSULE PO SCH ×3 (08:46→16:39)
[2019-08-11] MEDS: DIVALPROEX SODIUM 250 MG TABLET.DR PO SCH ×3 (08:46→16:39)
[2019-08-11] MEDS: ARIPIPRAZOLE 5 MG TABLET PO SCH ×2 (08:46→16:39)
[2019-08-11] MEDS: SERTRALINE HCL 50 MG TABLET PO SCH (08:47)
[2019-08-11] MEDS: LORAZEPAM 0.5 MG TABLET PO PRN ×2 (12:26→18:10)
[2019-08-11 16:00] VITALS: BP 109/72
[2019-08-11] MEDS: ATORVASTATIN 10 MG TABLET PO SCH (17:01)
[2019-08-11 20:10] VITALS: BP 121/73
[2019-08-11] MEDS: TEMAZEPAM 7.5 MG CAPSULE PO PRN (21:22)
[2019-08-12] MEDS: IBUPROFEN 600 MG TABLET PO PRN (06:00)
[2019-08-12 06:51] LABS: BASOPHILS % (AUTO) 0.6 % (0.0-2.0); EOSINOPHILS % (AUTO) 0.3 % (0.0-6.0); HEMATOCRIT 40 % (33-45); HEMOGLOBIN 13.4 g/dL (11.5-14.8); LYMPHOCYTES # (AUTO) 2.1 /CMM (0.8-4.8); MEAN CORPUSCULAR HGB CONC 34 g/dl (31.0-36.0); MEAN CORPUSCULAR VOLUME 86 fL (82-100); MONOCYTES # (AUTO) 0.3 /CMM (0.1-1.30); MONOCYTES % (AUTO) 6.6 % (2.0-12.0); NEUTROPHILS # (AUTO) 2.7 /CMM (1.8-8.9); NEUTROPHILS % (AUTO) 51.5 % (43.0-81.0); PLATELET COUNT (AUTO) 218 /CMM (150-450); RED BLOOD CELL COUNT(AUTO) 4.67 MIL/uL (4.0-5.2); WHITE BLOOD COUNT (AUTO) 5.2 K/uL (4.3-11.0)
[2019-08-12 08:00] VITALS: BP 125/72
[2019-08-12] MEDS: SERTRALINE HCL 50 MG TABLET PO SCH (08:08)
[2019-08-12] MEDS: ARIPIPRAZOLE 5 MG TABLET PO SCH (08:08)
[2019-08-12] MEDS: DIVALPROEX SODIUM 250 MG TABLET.DR PO SCH ×2 (08:08→13:09)
[2019-08-12] MEDS: PREGABALIN 100 MG CAPSULE PO SCH ×2 (08:08→13:09)
[2019-08-12] MEDS: LORAZEPAM 0.5 MG TABLET PO PRN (08:57)
[2019-08-12 08:58] LABS: ALBUMIN 3.7 g/dL (3.4-5.0); BILIRUBIN,TOTAL 0.3 mg/dL (0.2-1.0); CALCIUM, SERUM 9.2 mg/dL (8.5-10.1); CREATININE 0.8 mg/dL (0.6-1.3); POTASSIUM 4.4 mmol/L (3.5-5.1)
== END 2019-08-12 13:30 | DRG 885 ==
LOC: ER 18:04 → GPS 22:18
PROVIDERS: ADMIT Psychiatry & Neurology Psychiatry; ATTEND Internal Medicine
DX: F25.0 Schizoaffective disorder, bipolar type (principal); F23 Brief psychotic disorder; E87.0 Hyperosmolality and hypernatremia; I10 Essential (primary) hypertension; M19.90 Unspecified osteoarthritis, unspecified site; R79.89 Other specified abnormal findings of blood chemistry
CPT/HCPCS: 36415; 80048-TC; 80053-TC; 80061-TC; 80076-TC; 80164-TC; 80305; 81000-TC; 85025-TC; 87081-TC; 97116-TC; 97530-TC; G0480; J2060; J3490; J7030

== ENCOUNTER 2020-01-22 19:52 | Inpatient (IN) | payer BC, OTHER ==
[~2020-01-22] VITALS: Ht 167.6 cm; Wt 70.3 kg
[~2020-01-22 19:52] MED LIST changes: +ATOR20TA PO
--- NOTE | 2020-01-22 20:15 | NUR ---
BIBRA 878 "FOUND AT MOTHERS APT CRAWLING THE STAIRS" C/O BODY PAIN. PT LOOKS CONFUSED , CONSTANTLY SCREAMING, STATED SHE CAN NOT HEAR AND SHE CAN NOT SEE ANYTHING. PT WAS PLACED ON A MONITOR . VSS
[2020-01-22] MEDS ORDERED: diphenhydrAMINE HCL 50 MG/ML VIAL ONE (20:24)
[2020-01-22] MEDS ORDERED: LORAZEPAM INJ 2 MG/ML VIAL ONE (20:24)
[2020-01-22] MEDS ORDERED: HALOPERIDOL LACTATE INJ 5 MG/ML VIAL ONE (20:25)
[2020-01-22 20:27] LABS: BASOPHILS % (AUTO) 0.8 % (0.0-2.0); EOSINOPHILS % (AUTO) 0.6 % (0.0-6.0); HEMATOCRIT 40 % (33-45); HEMOGLOBIN 13.1 g/dL (11.5-14.8); LYMPHOCYTES % (AUTO) 33.1 % (20.0-44.0); MEAN CORPUSCULAR HGB CONC 33 g/dl (31.0-36.0); MEAN CORPUSCULAR VOLUME 88 fL (82-100); MONOCYTES # (AUTO) 0.5 /CMM (0.1-1.30); MONOCYTES % (AUTO) 7.6 % (2.0-12.0); NEUTROPHILS # (AUTO) 3.6 /CMM (1.8-8.9); NEUTROPHILS % (AUTO) 57.9 % (43.0-81.0); PLATELET COUNT (AUTO) 260 /CMM (150-450); WHITE BLOOD COUNT (AUTO) 6.1 K/uL (4.3-11.0)
[2020-01-22] MEDS ORDERED: HALOPERIDOL LACTATE INJ 5 MG/ML VIAL IM ONE (20:30)
[2020-01-22] MEDS ORDERED: LORAZEPAM INJ 2 MG/ML VIAL IM/IV ONE (20:30)
[2020-01-22] MEDS ORDERED: diphenhydrAMINE HCL 50 MG/ML VIAL IM/IV ONE (20:30)
[2020-01-22 20:39] LABS: CALCIUM, SERUM 9.3 mg/dL (8.5-10.1); CARBON DIOXIDE 25 mmol/L (21-32); CHLORIDE 106 mmol/L (98-107); CREATININE 0.7 mg/dL (0.6-1.3); GLUCOSE 100 mg/dL (74-106); POTASSIUM 3.1 mmol/L (3.5-5.1); SODIUM SERUM 143 mmol/L (136-145); UREA NITROGEN, BLOOD 10 mg/dL (7-18)
[2020-01-22 20:45] LABS: ACETAMINOPHEN 1 ug/ml (10-30); ALANINE AMINOTRANSFERASE 32 U/L (12-78); ALBUMIN 3.6 g/dL (3.4-5.0); ALKALINE PHOSPHATASE 82 U/L (46-116); ASPARTATE AMINOTRANSFERASE 19 U/L (15-37); BILIRUBIN,DIRECT 0.1 mg/dL (0.0-0.2); BILIRUBIN,TOTAL 0.5 mg/dL (0.2-1.0); SALICYLATE 3.5 mg/dL (2.8-20.0); TOTAL PROTEIN, SERUM 6.5 g/dL (6.4-8.2)
--- NOTE | 2020-01-22 20:59 | NUR ---
COVID SWAB COLLECTED AND SENT TO LAB
--- NOTE | 2020-01-22 21:15 | NUR ---
URINE COLLECTED AND SENT TO LAB
[2020-01-22 21:27] LABS: APPEARANCE,URINE Clear (CLEAR); BILIRUBIN,URINE Negative (NEGATIVE); BLOOD, URINE Negative Ery/uL (NEGATIVE); COLOR,URINE Yellow (YELLOW); KETONES,URINE Negative (NEGATIVE); LEUKOCYTE ESTERASE ,URINE Negative (NEGATIVE); NITRITE, URINE Negative (NEGATIVE); PROTEIN,URINE Negative (NEGATIVE); UGLUCOSE Negative (NEGATIVE); UROBILINOGEN,URINE 0.2 EU/dL (0.2)
--- NOTE | 2020-01-22 21:55 | NUR ---
SPOKE WITH CORPORATE TRAFFIC MANAGER TRAM CASILLAS FOR EVALUATION. ETA 1 HR
--- NOTE | 2020-01-23 00:45 | NUR ---
Patient is resting comfortably in bed with eyes closed. Easily aroused. VSS. WILL CONT TO MONITOR
--- NOTE | 2020-01-23 01:17 | NUR ---
RUBBLE PLACER TRAM CASILLAS AT BEDSIDE
--- NOTE | 2020-01-23 01:59 | NUR ---
report given to TRAM henry for continuity of care.
--- NOTE | 2020-01-23 02:17 | NUR ---
PT TRANSFERRED TO GPS [facility]IA [facility] IN STABLE CONDITION
[2020-01-23 02:30] VITALS: BP 148/54
[2020-01-23] MEDS ORDERED: MAG HYDROX/AL HYDROX/SIMETH 30 ML UDC PO PRN (03:00)
[2020-01-23] MEDS ORDERED: ACETAMINOPHEN 325 MG TABLET PO PRN (03:00)
[2020-01-23] MEDS ORDERED: MAGNESIUM HYDROXIDE 30 ML UDC PO PRN (03:00)
[2020-01-23] MEDS ORDERED: BLOOD SUGAR DIAGNOSTIC 1 EACH STRIP IN ONE (03:00)
--- NOTE | 2020-01-23 06:16 | NUR ---
GPS CERTIFIED MASTER SAFECRACKER NOTES: ADMITTED A 64/FEMALE FROM HOME ON 5150 HOLD FOR GRAVE DISABILITY. PER HOLD PATIENT WAS FOUND IN HIS MOTHER'S APT CRAWLING ON THE STAIRS. PATIENT WILL BE UNDER THE CARE OF DR. CASTRO AND DR. LENZ FOR PSYCH AND MEDICAL DOCTORS RESPECTIVELY. PATIENT WAS BROUGHT INTO THE UNIT VIA GURNEY. UPON FACE TO FACE ASSESSMENT PATIENT PRESENTS ALERT AND ORIENTED X1, APPEARS UNKEMPT, DELUSIONAL AND UNPREDICTABLE. SHE CLAIMS THAT SHE IS LEGALLY BLIND AND DEAF. PATIENT NOTED TO HAVE A HEARING AIDE (RIGHT SIDE ONLY-PLACED IN THE BELONGING BAG FOR THE SAFE). PATIENT'S BELONGINGS AND CONTRABAND WERE CHECKED. SKIN AND BODY ASSESSMENT CHECKED, PHOTOS TAKEN AND PLACED IN THE CHART. TOWARDS THE END PART OF THE SKIN ASSESSMENT- PATIENT REFUSED TO FINISH THE ASSESSMENT- AND THIS WAS AT THE PART WERE THE RAD TECH WAS GONNA TAKE THE PICTURE OF THE BRUISES ON THE BUTTOCKS AND THIGH AREA.. PER PATIENT, " I DON'T WANNA BE TOUCHED, PLEASE GO AWAY" PATIENT EARLIER HAD IM SHOTS AT THE ER AND SHE REQUESTED TO BE SLEEPING AT THIS TIME. Q15 MIN CHECKS STARTED. CARE PLAN INITIATED. PROVIDED PATIENT WITH PATIENT'S RIGHTS HANDBOOK AND THE GUIDE TO PRESCRIPTION MEDICATIONS. PATIENT THEN CHANGED TO CLEAN PATIENT'S GOWN. VITAL SIGNS TAKE AND RECORDED. WILL ENDORSE PATIENT TO DAY SHIFT NURSE FOR CONTINUITY OF CARE.
[2020-01-23 07:03] LABS: CREATININE 0.5 mg/dL (0.6-1.3)
[2020-01-23] MEDS ORDERED: POTASSIUM CHLORIDE 20 MEQ TAB.PRT.SR PO ONE (07:30)
[2020-01-23 08:00] VITALS: BP 125/66
--- NOTE | 2020-01-23 09:00 | NUR ---
RN NOTE- PT QUIET NO INTERACTION NEEDS ATTENDED LAW FIRM RECEPTIONIST CAME TO ASSESS. REFUSED SLEEPING
[2020-01-23] MEDS ORDERED: CLON1TAB12 PO (10:59)
[2020-01-23] MEDS ORDERED: HYDR-3972 PO (10:59)
[2020-01-23] MEDS ORDERED: MELO-107 PO (10:59)
[2020-01-23 16:00] VITALS: BP 142/65
--- NOTE | 2020-01-23 16:20 | NUR ---
UR Note: DEMARCUS faxed a clinical to [facility] behavioral health case manager, Boy ([phone]), to the fax number: [phone]. AUTH: [id number].
--- NOTE | 2020-01-23 19:25 | NUR ---
GPS-RN NOTE: RECEIVED ENDORSEMENT FROM THE DAY SHIFT CHARGE NURSE TO CALL DR. CAREY AND INFORMED HIM THAT DR. CASTRO CALLED IN THE UNIT TO GIVE PATIENT UNDER HIS CARE. 1927 - PLACED A CALL TO DR. CAREY X2. LEFT A VOICEMAIL MESSAGE PER DR. CASTRO'S REQUEST. ALSO STATED TO MD THAT PATIENT HAS NO PSYCH MEDS YET. CHARGE NURSE NHI AWARE. AWAITING FOR CALL BACK. Addendum: 01/23/20 at 2121 by HINA DUGGAN RN 2199 - DR. CAREY CALLED BACK MADE AWARE.
[2020-01-23 20:08] VITALS: BP 116/64
[2020-01-23] MEDS: TEMAZEPAM 7.5 MG CAPSULE PO PRN (21:39)
--- NOTE | 2020-01-23 21:42 | NUR ---
GPS-RN NOTE: INSOMNIA PATIENT C/O INABILITY TO SLEEP. ADMINISTERED RESTORIL 7.5MG PO ORDERED. WILL CONTINUE TO MONITOR.
--- NOTE | 2020-01-23 21:52 | NUR ---
GPS-RN NOTE: CALLED DR. LENZ REGARDING MED RECONCILIATION NEEDS TO BE DONE. SHE STATED "OK, WILL DO".
[2020-01-23] MEDS: LORAZEPAM 0.5 MG TABLET PO PRN (23:50)
--- NOTE | 2020-01-23 23:53 | NUR ---
GPS-RN NOTE: ANXIETY PATIENT C/O FEELING ANXIOUS. ADMINISTERED ATIVAN 0.5MG PO ORDERED. WILL CONTINUE TO MONITOR FOR PATIENT'S SAFETY.
[2020-01-24] MEDS: HYDROCODONE/APAP 5/325MG TABLET PO PRN (06:57)
--- NOTE | 2020-01-24 06:57 | NUR ---
GPS-RN NOTE: C/O BILATERAL KNEE PAIN PATIENT C/O BILATERAL KNEE PAIN ON A PAIN SCALE OF 7/10. ADMINISTERED NORCO 5/325MG PO ORDERED. WILL CONTINUE TO REASSESS.
[2020-01-24 07:13] LABS: CHOLESTEROL 164 mg/dL (<200); HDL CHOLESTEROL 41 mg/dL (40-60); LDL 97 mg/dL (0-99); TRIGLYCERIDES 140 mg/dL (30-150)
[2020-01-24 08:00] VITALS: BP 148/64
[2020-01-24] MEDS: PREGABALIN 100 MG CAPSULE PO SCH ×4 (08:13→16:29)
[2020-01-24] MEDS: MELOXICAM 7.5 MG TABLET PO SCH (08:13)
[2020-01-24] MEDS ORDERED: clonazePAM 1 MG TABLET PO SCH (09:00)
--- NOTE | 2020-01-24 09:00 | NUR ---
RN NOTE- ANXIOUS LABILE USING PROFANITY STATES SHE DOESNT BELONG ON PSYCHE UNIT MED COMPLIANT
--- NOTE | 2020-01-24 10:30 | NUR ---
WOUND CARE CONSULT: PT ADAMANTLY REFUSED SKIN ASSESSMENT AND STATED " YOU ARE NOT WELCOME HERE". WILL SEE PRN. PER RN, PT HAS DRY SCABS TO UPPER AND LOWER EXTREMITIES, PRESENT ON ADMISSION.
--- NOTE | 2020-01-24 10:35 | NUR ---
RN-CO: PATIENT WAS OFFERED ATIVAN PO BUT GETS AGITATED AND SCREAMED AND REFUSED ATIVAN PO. OBSERVE PT'S BEHVIOR WELL.ENCOURAGED TO WATCH TV AND PARTICIPATE TO GROUP ACTIVITIES BUT STILL REFUSED.
--- NOTE | 2020-01-24 10:45 | NUR ---
RN NOTE- PT LABILE SCREAMING AT STAFF AND RN STATION . NOT DIRECTABLE POSTURING . PT TAKEN AND ESCORTED TO ROOM. SWEARING AT STAFF HOSTILE. DR CAREY ORDERED ATIVAN 2 MG HALDOL 5 MG AND BENADRYL 25 MG IM.
[2020-01-24] MEDS ORDERED: diphenhydrAMINE HCL 50 MG/ML VIAL IM STA (11:00)
[2020-01-24] MEDS ORDERED: HALOPERIDOL LACTATE INJ 5 MG/ML VIAL IM STA (11:00)
[2020-01-24] MEDS ORDERED: LORAZEPAM INJ 2 MG/ML VIAL IM STA (11:00)
--- NOTE | 2020-01-24 11:05 | NUR ---
RN NOTE- EMERGENCY IM RX GIVEN ATIVAN 2 MG HALDOL 5 MG BENADRYL 25 MG GIVEN IM W FEMALE RN AND STAFF.
--- NOTE | 2020-01-24 12:05 | NUR ---
UR Note: DEMARCUS called the pts [facility] briefcase sewer, Boy ([phone]), back and informed him that the pt is receiving IMs and has refused her medications. SW stated that the pt is not compliant and that there are no psychiatric notes at this time. Pts briefcase sewer asked for a clinical to be faxed and stated that he will touch base tomorrow.
--- NOTE | 2020-01-24 12:18 | NUR ---
UR Note: DEMARCUS faxed a clinical to [facility] piano case maker, Boy ([phone]), to the fax number: [phone]. AUTH: [id number].
--- NOTE | 2020-01-24 14:05 | NUR ---
Family Contact: SW called the pts sister, Janice ([phone]), who stated that the pt was currently living in an Independent Living and provided the SW with the contact information. She then stated that she cannot be too involved with the pt and that she just wants to be updated.
--- NOTE | 2020-01-24 14:36 | NUR ---
Initial Discharge Plan: Pt currently resides at [facility] located at [address] [place] [address]; ([phone]). Per pt, she would like to return. DMEARCUS called Robel ([phone]) from the facility and he stated that the pt can return. DEMARCUS will work with the pt and the MD regarding appropriate discharge planning. DEMARCUS will form a safe and proper discharge plan.
--- NOTE | 2020-01-24 14:37 | NUR ---
Facility Contact: DEMARCUS called Robel ([phone]) from [facility] and confirmed that the pt can return upon discharge. Robel stated that he will also be willing to pick the pt up.
[2020-01-24 16:00] VITALS: BP 150/90
--- NOTE | 2020-01-24 19:22 | NUR ---
GPS RN NOTES: PAGED DR CAREY IN REGARDS TO MED RECON OF THE PT. DR CAREY CALLED BACK AND STATED HE WILL COME TO ASSESS THE PATIENT TODAY. CONTINUE TO MONITOR PT.
[2020-01-24 20:29] VITALS: BP 133/80
[2020-01-24] MEDS: ATORVASTATIN 10 MG TABLET PO SCH (21:38)
[2020-01-24] MEDS: ARIPIPRAZOLE 5 MG TABLET PO SCH (22:00)
--- NOTE | 2020-01-24 22:00 | NUR ---
GPS RN NOTES: DR CAREY CAME AND ASSESSED PT. DR AT BED SIDE. DR CAREY INPUT NEW ORDERS. ORDERS NOTED AND CARRIED OUT. CONTINUE TO MONITOR.
--- NOTE | 2020-01-24 22:24 | NUR ---
GPS RN NOTES: REFUSED ABILIFY PT REFUSED ABILIFY 5 MG PO ORDERED. PT STATED, "DONT FORCE M. I DONT NEED THAT. I DONT WANT THAT." PT INCREASED AGITATION. EXPLAIN RISKS AND BENEFITS. PT STILL REFUSED X3. CONTINUE TO MONITOR
[2020-01-24] MEDS: TEMAZEPAM 7.5 MG CAPSULE PO PRN (22:39)
--- NOTE | 2020-01-24 22:46 | NUR ---
GPS RN NOTES: INSOMNIA UPON DOING ROUNDS, PT AWAKE. PT REQUESTED SLEEPING MEDICATION. OFFERED RESTORIL 7.5MG PO PRN ORDERED. PT AGREED AND TOLERATED MEDICATION WELL. CONTINUE TO MONITOR.
[2020-01-25 08:00] VITALS: BP 140/93
[2020-01-25] MEDS: SERTRALINE HCL 50 MG TABLET PO SCH (09:00)
[2020-01-25] MEDS: DIVALPROEX SODIUM 250 MG TABLET.DR PO SCH ×3 (09:00→17:00)
[2020-01-25] MEDS: PREGABALIN 100 MG CAPSULE PO SCH ×3 (09:00→17:00)
[2020-01-25] MEDS: ARIPIPRAZOLE 5 MG TABLET PO SCH ×2 (09:00→21:00)
[2020-01-25] MEDS: MELOXICAM 7.5 MG TABLET PO SCH (09:21)
[2020-01-25] MEDS: LORAZEPAM 0.5 MG TABLET PO PRN ×2 (09:49→17:30)
--- NOTE | 2020-01-25 09:50 | NUR ---
NURSING NOTE: PT IS IN HER ROOM, AGITATED, ANXIOUS, REQUESTING KLONOPIN FOR HER ANXIETY. OFFERED ATIVAN TO PT AND PT AGREED TO TAKE ATIVAN 0.5 MG PO PER MD ORDER. VVS. WILL CONTINUE TO MONITOR FOR SAFETY AND BEHAVIOR.
--- NOTE | 2020-01-25 13:59 | NUR ---
UR Note: DEMARCUS faxed a clinical to [facility] sample case porter, Boy ([phone]), to the fax number: [phone]. AUTH: [id number].
[2020-01-25 16:00] VITALS: BP 135/96
--- NOTE | 2020-01-25 17:30 | NUR ---
NURSING NOTE: PT IS IN HER ROOM, ANXIOUS, REFUSING TO TAKE HER ROUTINE MEDS, REQUESTING ATIVAN. ADMINISTERED ATIVAN 0.5 MG PO PER MD ORDER. VVS. WILL CONTINUE TO MONITOR FOR SAFETY AND BEHAVIOR. Addendum: 01/25/20 at 2106 by GWEN TURNER RN GPS RN NOTE: PT REFUSED 2100 MEDICATION ABILIFY 5MG 1 TAB PO ORDERED. PER PT SHE DOES NOT WANT TO TAKE ANY PSYCH MEDICATION, BUT REQUESTED FOR SLEEPING MEDICATION. RESTORIL 7.5MG 1 TAB GIVEN PO PRN ORDERED. PER AM SHIFT, PT ALSO REFUSED ALL AM PSYCH MEDS. PT CURRENTLY LAYING ON HER BED. WILL CONTINUE TO MONITOR. Addendum: 01/25/20 at 2210 by GWEN TURNER RN PLEASE DISREGARD THIS AMENDED CHART. IT WAS CHARTED UNDER THE WRONG NURSE.
[2020-01-25 19:55] VITALS: BP 160/76
[2020-01-25] MEDS: TEMAZEPAM 7.5 MG CAPSULE PO PRN (21:00)
[2020-01-25] MEDS: ATORVASTATIN 10 MG TABLET PO SCH (22:00)
--- NOTE | 2020-01-25 22:04 | NUR ---
GPS RN NOTE: PT REFUSED 2100 AND 0 MEDICATIONS ABILIFY 5MG 1 TAB PO AND LIPITOR 10MG 2TABS/20MG PO ORDERED. PER PT SHE DOES NOT WANT TO TAKE ANY PSYCH OR MEDICAL MEDICATION, EXCEPT FOR SLEEPING MEDICATION. RESTORIL 7.5MG 1 TAB GIVEN PO PRN ORDERED. PER AM SHIFT, PT ALSO REFUSED ALL AM PSYCH MEDS. PT CURRENTLY LAYING ON HER BED. WILL CONTINUE TO MONITOR.
[2020-01-26 07:47] VITALS: BP 120/86
[2020-01-26 08:00] VITALS: BP 120/86
[2020-01-26] MEDS: PREGABALIN 100 MG CAPSULE PO SCH ×3 (09:00→17:00)
[2020-01-26] MEDS: SERTRALINE HCL 50 MG TABLET PO SCH (09:00)
[2020-01-26] MEDS: DIVALPROEX SODIUM 250 MG TABLET.DR PO SCH ×3 (09:00→17:00)
[2020-01-26] MEDS: ARIPIPRAZOLE 5 MG TABLET PO SCH ×2 (09:00→21:00)
[2020-01-26] MEDS: MELOXICAM 7.5 MG TABLET PO SCH (09:02)
[2020-01-26] MEDS: LORAZEPAM 0.5 MG TABLET PO PRN ×2 (09:02→15:44)
--- NOTE | 2020-01-26 09:03 | NUR ---
GPS RN Note: patient refused all medications except for Mobic. Patient requested Ativan for anxiety. Ativan 0.5mg was administered as ordered. Will continue to monitor Q15 for mood, safety and behavior.
--- NOTE | 2020-01-26 15:30 | NUR ---
UR Note: DEMARCUS faxed a clinical to [facility] post manager, Boy ([phone]), to the fax number: [phone]. AUTH: [id number].
--- NOTE | 2020-01-26 15:44 | NUR ---
Pt. is anxious, ativan po prn given and will continue to monitor.
[2020-01-26 16:00] VITALS: BP 156/92
--- NOTE | 2020-01-26 17:32 | NUR ---
Pt. refused the due meds of Depakote and Lyrica, offered 3x and explained on the importance and still refusing. Pt. saying " I don't take any meds."
[2020-01-26 19:57] VITALS: BP 157/88
[2020-01-26] MEDS: TEMAZEPAM 7.5 MG CAPSULE PO PRN (21:10)
[2020-01-26] MEDS: ATORVASTATIN 10 MG TABLET PO SCH (22:00)
--- NOTE | 2020-01-26 22:15 | NUR ---
GPS RN NOTE: PT REFUSED 2099 AND 2199 MEDICATIONS ABILIFY 5MG 1 TAB PO AND LIPITOR 10MG 2TABS/20MG PO ORDERED. PER PT SHE DOES NOT WANT TO TAKE ANY PSYCH OR MEDICAL MEDICATION, EXCEPT FOR SLEEPING MEDICATION. RESTORIL 7.5MG 1 TAB GIVEN PO PRN ORDERED AT 2109. PT HAS BEEN REFUSING ALL HER MEDS SINCE HER ADMISSION EXCEPT FOR RESTORIL. DR CAREY SPOKE WITH PT TODAY ABOUT MED COMPLIANCE BUT PT STILL REFUSED. PT IS CURRENTLY IN BED SLEEPING. WILL CONTINUE TO MONITOR.
--- NOTE | 2020-01-27 06:34 | NUR ---
GPS RN CLOSING NOTES: PT AWAKE, A/O X3. COOPERATIVE. SEEN IN UNIT AMBULATING IN HALLWAY AND INTERACTING WITH STAFF. NO S/S OF DISTRESS. RESPIRATION EVEN AND UNLABORED WITH EQUAL RISE AND FALL OF THE CHEST. ALL CARE NEEDS MET ANTICIPATED. WILL CONTINUE TO MONITOR AND ENDORSE TO AM SHIFT.
--- NOTE | 2020-01-27 07:32 | NUR ---
RN NOTES PATIENT RECEIVED IN ROOM, AWAKE, ALERT AND ORIENTED X 2. ON ROOM AIR WITH NO SIGNS OF RESPIRATORY DISTRESS WITH NON-LABORED BREATHING. PATIENT STATING, "I AM HARD OF HEARING." PATIENT STATING AND PRESENTING WITH NO SIGNS OF PAIN OR DISCOMFORT AT THIS TIME. SAFETY PRECAUTIONS IMPLEMENTED WITH BED LOCKED, BED IN THE LOWEST POSITION, BILATERAL SIDE RAILS UP, AND WILL CONTINUE TO MONITOR PATIENT.
[2020-01-27 08:00] VITALS: BP 147/59
[2020-01-27] MEDS: PREGABALIN 100 MG CAPSULE PO SCH ×3 (09:00→16:49)
[2020-01-27] MEDS: ARIPIPRAZOLE 5 MG TABLET PO SCH ×2 (09:00→21:00)
[2020-01-27] MEDS: DIVALPROEX SODIUM 250 MG TABLET.DR PO SCH ×3 (09:00→16:49)
[2020-01-27] MEDS: SERTRALINE HCL 50 MG TABLET PO SCH (09:00)
[2020-01-27] MEDS: MELOXICAM 7.5 MG TABLET PO SCH (09:08)
[2020-01-27 16:00] VITALS: BP 159/88
--- NOTE | 2020-01-27 16:16 | NUR ---
UR Note: DEMARCUS faxed a clinical to [facility] rehabilitation case coordinator, Boy ([phone]), to the fax number: [phone]. AUTH: [id number].
[2020-01-27 20:00] VITALS: BP 149/89
[2020-01-27 20:08] VITALS: BP 149/89
--- NOTE | 2020-01-27 21:10 | NUR ---
GPS RN NOTE: REFUSED ABILIFY PATIENT REFUSED ABILIFY 5 MG AT 2100, STATED," I DON'T TAKE ANY PSYCH MEDS, THAT'S WHY I WILL GO TO THE COURT & I AM OK WITH THAT." PATIENT CONTINUED TO REFUSE ABILIFY DESPITE OF EXPLANATIONS.
[2020-01-27] MEDS: ATORVASTATIN 10 MG TABLET PO SCH (21:38)
[2020-01-27] MEDS: TEMAZEPAM 7.5 MG CAPSULE PO PRN (21:38)
--- NOTE | 2020-01-27 21:42 | NUR ---
GPS RN NOTE: INSOMNIA PATIENT VERBALIZED THAT SHE IS UNABLE TO SLEEP & REQUESTED TO TAKE SLEEPING MEDICINE. PRN RESTORIL 7.5 MG 1 CAP PO GIVEN. WILL CONTINUE TO MONITOR FOR EFFECTIVENESS.
[2020-01-28 08:00] VITALS: BP 161/73
[2020-01-28] MEDS: SERTRALINE HCL 50 MG TABLET PO SCH (08:26)
[2020-01-28] MEDS: MELOXICAM 7.5 MG TABLET PO SCH (08:26)
[2020-01-28] MEDS: PREGABALIN 100 MG CAPSULE PO SCH ×3 (08:26→16:27)
[2020-01-28] MEDS: DIVALPROEX SODIUM 250 MG TABLET.DR PO SCH ×3 (08:26→17:00)
[2020-01-28] MEDS: ARIPIPRAZOLE 5 MG TABLET PO SCH ×2 (08:26→21:00)
--- NOTE | 2020-01-28 08:26 | NUR ---
RN NOTE: MEDICATION REFUSAL PT REFUSED ALL AM MEDICATIONS EXCEPT LYRICA. EDUCATED PT RE IMPORTANCE OF MEDICATION COMPLIANCE. PT CONTINUED TO REFUSE X 3.
--- NOTE | 2020-01-28 13:01 | NUR ---
RN NOTE: MEDICATION REFUSAL PT REFUSED 1300 DEPAKOTE. EDUCATED PT RE IMPORTANCE OF MEDICATION COMPLIANCE. PT CONT TO REFUSE X 3.
[2020-01-28 16:00] VITALS: BP 126/65
--- NOTE | 2020-01-28 17:08 | NUR ---
RN NOTE: MEDICATION REFUSAL PT REFUSED 1700 DEPAKOTE. EDUCATED PT RE IMPORTANCE OF MEDICATION COMPLIANCE. PT CONT TO REFUSE X 3. RIESE HEARING TO BE SCHEDULED.
[2020-01-28 19:56] VITALS: BP 132/63
[2020-01-28] MEDS: ATORVASTATIN 10 MG TABLET PO SCH (21:13)
--- NOTE | 2020-01-28 21:13 | NUR ---
GPS RN NOTE: MEDICATION REFUSAL PT. REFUSED SCHEDULED 2099 MEDICATION, ABILIFY 5MG PO. EXPLAINED RISKS AND BENEFITS. OFFERED 3 X AND STILL REFUSED. WILL CONTINUE TO MONITOR FOR SAFETY AND BEHAVIOR
[2020-01-28] MEDS: TEMAZEPAM 7.5 MG CAPSULE PO PRN (22:04)
--- NOTE | 2020-01-28 22:04 | NUR ---
GPS RN NOTE: INSOMNIA PT UNABLE TO SLEEP. ADMINISTERED RESTORIL 7.5 MG PO PRN ORDERED. WILL CONTINUE TO MONITOR FOR SAFETY AND BEHAVIOR
[2020-01-29] MEDS: HYDROCODONE/APAP 5/325MG TABLET PO PRN ×2 (01:42→15:37)
--- NOTE | 2020-01-29 01:42 | NUR ---
GPS RN NOTE: PAIN PT. C/O OF 12/01 BILATERAL KNEE PAIN. ADMINISTERED NORCO 5-325 PO PRN ORDERED. WILL CONTINUE TO MONITOR FOR SAFETY AND BEHAVIOR.
[2020-01-29 08:00] VITALS: BP 134/71
[2020-01-29] MEDS: MELOXICAM 7.5 MG TABLET PO SCH (08:27)
[2020-01-29] MEDS: PREGABALIN 100 MG CAPSULE PO SCH ×3 (08:27→16:45)
[2020-01-29] MEDS: ARIPIPRAZOLE 5 MG TABLET PO SCH ×2 (08:27→21:00)
[2020-01-29] MEDS: DIVALPROEX SODIUM 250 MG TABLET.DR PO SCH ×3 (08:27→16:45)
[2020-01-29] MEDS: SERTRALINE HCL 50 MG TABLET PO SCH (08:28)
--- NOTE | 2020-01-29 08:28 | NUR ---
RN NOTE: MEDICATION REFUSAL PT REFUSED ALL AM MEDICATIONS EXCEPT LYRICA. EDUCATED PT REGARDING IMPORTANCE OF MEDICATION COMPLIANCE. PT CONTINUED TO REFUSE X 3.
--- NOTE | 2020-01-29 12:18 | NUR ---
RN NOTE: MEDICATION REFUSAL PT REFUSED 1300 DOSE OF DEPAKOTE. EDUCATED PT RE IMPORTANCE OF MEDICATION COMPLIANCE. PT CONTINUED TO REFUSE X 3 " I ALMOST ON THOSE MEDICATIONS " RIESE HEARING TO BE DONE ON 01/30
--- NOTE | 2020-01-29 15:37 | NUR ---
RN NOTE: PAIN PT C/O 10/ BILAT ANKLE AND KNEE PAIN. MEDICATED WITH NORCO PO PRN.
[2020-01-29 16:00] VITALS: BP 154/80
[2020-01-29 20:00] VITALS: BP 137/84
[2020-01-29] MEDS: ATORVASTATIN 10 MG TABLET PO SCH (21:16)
--- NOTE | 2020-01-29 21:18 | NUR ---
GPS-RN NOTE: MEDICATION REFUSAL PATIENT REFUSED SCHEDULED ABILIFY. EDUCATED PATIENT REGARDING IMPORTANCE OF MEDICATION COMPLIANCE. PATIENT CONTINUED TO REFUSE X3.
[2020-01-29] MEDS: TEMAZEPAM 7.5 MG CAPSULE PO PRN (21:38)
--- NOTE | 2020-01-29 21:38 | NUR ---
GPS-RN NOTE: INSOMNIA PATIENT C/O INABILITY TO SLEEP. ADMINISTERED RESTORIL 7.5MG PO ORDERED. WILL CONTINUE TO MONITOR.
--- NOTE | 2020-01-29 21:58 | NUR ---
GPS-RN NOTE: PATIENT REFUSED SKIN ASSESSMENT.
[2020-01-30] MEDS: HYDROCODONE/APAP 5/325MG TABLET PO PRN ×2 (00:19→06:19)
--- NOTE | 2020-01-30 00:21 | NUR ---
GPS-RN NOTE: C/O RIGHT KNEE PATIENT C/O RIGHT KNEE PAIN ON A PAIN SCALE OF 7/10. ADMINISTERED NORCO 5/325MG I TAB PO ORDERED. WILL CONTINUE TO REASSESS.
[2020-01-30 08:00] VITALS: BP 145/73
[2020-01-30] MEDS: DIVALPROEX SODIUM 250 MG TABLET.DR PO SCH ×3 (08:07→16:25)
[2020-01-30] MEDS: ARIPIPRAZOLE 5 MG TABLET PO SCH ×2 (08:07→21:00)
[2020-01-30] MEDS: SERTRALINE HCL 50 MG TABLET PO SCH (08:08)
[2020-01-30] MEDS: MELOXICAM 7.5 MG TABLET PO SCH (08:08)
[2020-01-30] MEDS: PREGABALIN 100 MG CAPSULE PO SCH ×4 (08:08→16:25)
--- NOTE | 2020-01-30 09:00 | NUR ---
RN NOTE--PT ALERT ORIENTED TO PERSON PLACE SOME CONFUSION ANXIOUS AT TIMES LABILE AND PARANOID REFUSES ALL RX EXCEPT LYRICA. VISIBLE ON UNIT GOOD EYE CONTACT LOUD THOUGH RELATED TO HEARING NOT BEHAVIORS DENIES SI HI AH VH
--- NOTE | 2020-01-30 14:00 | NUR ---
RN NOTE- PT ESCALATIMNG ALL AFTERNOON. YELLING SCREAMING ABOUT HER SHIPPING AND RECEIVING OPERATOR "IM GOING TO OWN YOUR ASSES" "I WILL DIAMANTE THIS F'ING HOSPITAL" PT CONTINUES W ULTIMATUMS AND THREATS. WILL NOTIFY
--- NOTE | 2020-01-30 14:40 | NUR ---
RN NOTE- CONTINUED YELLING SWEARING AND RESTLESS PACING HALLS SLAMMING DOORS THREATENING STAFF. DR CAREY ORDERED ATIVAN 2 MG , BENADRYL 25 MG AND HALDOL 5 MG IM. COMPLIED ORDERED
--- NOTE | 2020-01-30 15:29 | NUR ---
RN NOTE- ATIVAN 2MG, BENADRYL 25 MG AND HALDOL 5 MG GIVEN IM W FEMALE STAFF AND NURSES. PT SCREAMING PROFANITY AND YELLING. COMBATIVE AND DISRESPECTFUL TO ALL STAFF.
[2020-01-30] MEDS ORDERED: diphenhydrAMINE HCL 50 MG/ML VIAL IM ONE (15:30)
[2020-01-30] MEDS ORDERED: LORAZEPAM INJ 2 MG/ML VIAL IM ONE (15:30)
[2020-01-30] MEDS ORDERED: HALOPERIDOL LACTATE INJ 5 MG/ML VIAL IM ONE (15:30)
--- NOTE | 2020-01-30 15:45 | NUR ---
RN NOTE - PT SITTING/LAYING ON FLOOR IN CREWS NOT DIRECTABLE SWEARING STILL THREATENING LEGAL PROBLEMS FOR HOSPITAL. STAFF PLACED PT IN ROOM. MONITORING LINE OF SIGHT
[2020-01-30 20:09] VITALS: BP 131/49
[2020-01-30] MEDS: ATORVASTATIN 10 MG TABLET PO SCH (21:11)
--- NOTE | 2020-01-30 22:05 | NUR ---
GPS RN NOTE: MEDICATION REFUSAL PT REFUSED 2100 AND 0 MEDICATIONS ABILIFY 5MG 1 TAB PO AND LIPITOR 10MG 2TABS/20MG PO ORDERED. PER PT. SHE DOES NOT WANT TO TAKE ANY PSYCH OR MEDICAL MEDICATION AT THIS TIME, DR. CAREY IN THE UNIT, AND PT. SEEN BY AND NOTIFIED OF DR. CAREY PT. REFUSED HER NIGHT SCHEDULE MEDS AND PT. BEHAVIOR VERY UNCOOPRTIVE , ANXIOUS ,PARANOID, NON DIRECTABLE. WILL CONTINUE TO MONITOR SAFETY AND BEHAVIOR.
--- NOTE | 2020-01-31 06:42 | NUR ---
GPS RN NOTES: PT AWAKE, ALERT. COOPERATIVE AT THIS TIME. . NO S/S OF DISTRESS NOTED . NO CHANGE OF CONDITION NOTED, ALL CARE NEEDS MET ANTICIPATED. WILL CONTINUE TO MONITOR FOR SAFETY BEHAVIOR, AND ENDORSE TO AM SHIFT FOR CONTINUITY OF CARE .
[2020-01-31 08:00] VITALS: BP 134/82
[2020-01-31] MEDS: PREGABALIN 100 MG CAPSULE PO SCH ×3 (08:23→16:30)
[2020-01-31] MEDS: DIVALPROEX SODIUM 250 MG TABLET.DR PO SCH ×3 (08:34→16:30)
[2020-01-31] MEDS: ARIPIPRAZOLE 5 MG TABLET PO SCH ×2 (08:34→21:00)
[2020-01-31] MEDS: MELOXICAM 7.5 MG TABLET PO SCH (08:35)
[2020-01-31] MEDS: SERTRALINE HCL 50 MG TABLET PO SCH (08:35)
[2020-01-31] MEDS: HYDROCODONE/APAP 5/325MG TABLET PO PRN ×2 (08:38→21:26)
--- NOTE | 2020-01-31 08:39 | NUR ---
RN NOTE- PT C/O PAIN TO BACK AND LEGS. PAIN ALSO TO FEET. NORCO 5/325 GIVEN AT THIS TIME
--- NOTE | 2020-01-31 09:00 | NUR ---
RN NOTE- PT ALERT SOME CONFUSION ANXIOUS AT TIMES LABILE AND PARANOID REFUSES ALL RX EXCEPT LYRICA. VISIBLE ON UNIT GOOD EYE CONTACT LOUD THOUGH RELATED TO HEARING NOT BEHAVIORS DENIES SI HI AH VH FOCUS ON LEAVING
--- NOTE | 2020-01-31 11:17 | NUR ---
UR Note: DEMARCUS faxed a clinical to [facility] showcase trimmer, Boy ([phone]), to the fax number: [phone]. AUTH: [id number].
[2020-01-31 16:00] VITALS: BP 155/86
[2020-01-31 19:57] VITALS: BP 153/61
--- NOTE | 2020-01-31 21:10 | NUR ---
GPS RN NOTE: REFUSED SKIN ASSESSMENT PATIENT REFUSED SKIN ASSESSMENT TONKIN ON 01/31/2020 DESPITE OF RISKS & BENEFITS EXPLANATIONS. CRYING, EMOTIONAL, EASILY AGITATED & IRRITABLE.
[2020-01-31 21:20] VITALS: BP 140/82
--- NOTE | 2020-01-31 21:26 | NUR ---
GPS RN NOTE: PAIN PATIENT VERBALIZED C/O RIGHT & LEFT LEG PAIN 11/01, WANTED TO TAKE NORCO ONLY AT THIS TIME. PRN NORCO 5-325 MG 1 TAB PO GIVEN. VITALS WNL 140/82, 69, 20, 97.6, 97% AT RA. WILL CONTINUE TO MONITOR.
--- NOTE | 2020-01-31 21:33 | NUR ---
GPS RN NOTE: REFUSED ABILIFY PATIENT REFUSED ABILIFY 5 MG AT 2100 X 3, DESPITE OF EXPLANATIONS & ENCOURAGEMENT.
[2020-01-31] MEDS: ATORVASTATIN 10 MG TABLET PO SCH (21:37)
[2020-01-31] MEDS: TEMAZEPAM 7.5 MG CAPSULE PO PRN (23:43)
[2020-02-01 08:00] VITALS: BP 161/86
[2020-02-01] MEDS: MELOXICAM 7.5 MG TABLET PO SCH (08:00)
[2020-02-01] MEDS: LORAZEPAM 0.5 MG TABLET PO PRN (08:00)
[2020-02-01] MEDS: PREGABALIN 100 MG CAPSULE PO SCH ×3 (08:00→16:27)
[2020-02-01] MEDS: ARIPIPRAZOLE 5 MG TABLET PO SCH ×2 (08:06→21:05)
[2020-02-01] MEDS: SERTRALINE HCL 50 MG TABLET PO SCH (08:07)
[2020-02-01] MEDS: DIVALPROEX SODIUM 250 MG TABLET.DR PO SCH ×3 (08:07→16:30)
--- NOTE | 2020-02-01 08:07 | NUR ---
RN-CO: ATIVAN GIVEN FOR ANXIETY MANIFESTED BY EXTREME RESTLESSNESS. Addendum: 02/01/20 at 09 by REINALDO COLEY RN RN-CO: AND SCREAMING AT THE NURSE ANS STAFF.
[2020-02-01] MEDS: HYDROCODONE/APAP 5/325MG TABLET PO PRN ×2 (09:22→16:27)
--- NOTE | 2020-02-01 09:23 | NUR ---
RN-CO: NORCO GIVEN FOR PAIN ON RIGHT LEG 01/01.
--- NOTE | 2020-02-01 11:21 | NUR ---
RN-CO: PT IS SLAMMING HER DOOR WHENEVER I OPEN IT FOR MY MONITORING Q 30 MIN. SHE IS EASILY AGITATED AND RESTLESS.
--- NOTE | 2020-02-01 11:59 | NUR ---
UR Note: DEMARCUS faxed a clinical to [facility] ed case manager, Boy ([phone]), to the fax number: [phone]. AUTH: [id number].
--- NOTE | 2020-02-01 11:59 | NUR ---
Family Contact: SW called the pts sister, Janice ([phone]), and attempted to leave a voicemail but her mailbox was full.
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
[2020-02-01 16:00] VITALS: BP 137/67
--- NOTE | 2020-02-01 19:53 | NUR ---
GPS RN NOTES RECEIVED PATIENT IN WALKING AROUND ROOM, NO S/S OF COMPLAINTS. PATIENT DOES NOT DISPLAY ANY S/S OF DISTRESS. BREATHING EVEN AND UNLABORED. PT IS ALERT AND ORIENTED X 2. NOT MED COMPLIANT. PT IS HYPERVERBAL, PARANOID, AND LABILE. PATIENT DENIES SI AND HI. SAFETY PRECAUTIONS IN PLACE, BED IN LOWEST POSITION, LOCKED, AND CALL LIGHT KEPT WITHIN REACH. WILL CONTINUE TO MONITOR.
[2020-02-01 20:00] VITALS: BP 117/72
[2020-02-01 20:15] VITALS: BP 117/72
[2020-02-01] MEDS: ATORVASTATIN 10 MG TABLET PO SCH (21:05)
[2020-02-01] MEDS: TEMAZEPAM 7.5 MG CAPSULE PO PRN (21:58)
--- NOTE | 2020-02-01 21:58 | NUR ---
GPS RN NOTES PATIENT REQUESTED RESTORIL TO HELP HER SLEEP. GIVEN AT 0752. WILL CONTINUE TO MONITOR .
[2020-02-02] MEDS: HYDROCODONE/APAP 5/325MG TABLET PO PRN ×2 (05:10→22:51)
--- NOTE | 2020-02-02 05:10 | NUR ---
GPS RN NOTES PATIENT COMPLAINING OF PAIN 7/10 ON HER LEGS. GIVEN NORCO AT 0510. VITAL SIGNS WNL. WILL CONTINUE TO MONITOR.
[2020-02-02 07:05] LABS: CALCIUM, SERUM 8.7 mg/dL (8.5-10.1); CREATININE 0.6 mg/dL (0.6-1.3); POTASSIUM 3.7 mmol/L (3.5-5.1)
[2020-02-02 08:00] VITALS: BP 146/62
[2020-02-02] MEDS: MELOXICAM 7.5 MG TABLET PO SCH (08:34)
[2020-02-02] MEDS: PREGABALIN 100 MG CAPSULE PO SCH ×3 (08:34→16:53)
[2020-02-02] MEDS: ARIPIPRAZOLE 5 MG TABLET PO SCH ×2 (08:34→21:07)
[2020-02-02] MEDS: DIVALPROEX SODIUM 250 MG TABLET.DR PO SCH ×3 (08:34→16:53)
[2020-02-02] MEDS: SERTRALINE HCL 50 MG TABLET PO SCH (08:35)
[2020-02-02 11:24] VITALS: BP 146/62
[2020-02-02] MEDS: LORAZEPAM 0.5 MG TABLET PO PRN (12:30)
[2020-02-02] MEDS ORDERED: HALOPERIDOL LACTATE INJ 5 MG/ML VIAL IM PRN (13:00)
--- NOTE | 2020-02-02 14:18 | NUR ---
Family Contact: SW called the pts sister, Janice ([phone]), and attempted to leave a voicemail but her mailbox was full.
--- NOTE | 2020-02-02 14:18 | NUR ---
UR Note: DEMARCUS faxed a clinical to [facility] case manager specialist, Boy ([phone]), to the fax number: [phone]. AUTH: [id number].
[2020-02-02 16:00] VITALS: BP 131/65
[2020-02-02 20:00] VITALS: BP 149/79
[2020-02-02 20:09] VITALS: BP 149/79
[2020-02-02 21:00] VITALS: BP 136/75
[2020-02-02] MEDS: ATORVASTATIN 10 MG TABLET PO SCH (21:12)
--- NOTE | 2020-02-02 22:51 | NUR ---
GPS RN NOTE: PAIN PATIENT C/O RIGHT KNEE & RIGHT SHOULDER PAIN 11/01 & WANTED TO TAKE NORCO, PRN NORCO 5-325 MG 1 TAB PO GIVEN. WILL CONTINUE TO MONITOR.
--- NOTE | 2020-02-03 00:25 | NUR ---
GPS RN NOTE PATIENT WANTED TO TAKE SLEEPING MEDICINE, RESTORIL WAS TAKEN OUT OF OMNICELL BUT PATIENT REFUSED TO TAKE RESTORIL AT THIS TIME. WILL CHECK WITH THE PATIENT LATER IF SHE WOULD LIKE TO TAKE HER SLEEPING MEDICINE.
[2020-02-03] MEDS: TEMAZEPAM 7.5 MG CAPSULE PO PRN ×2 (00:54→23:04)
--- NOTE | 2020-02-03 00:54 | NUR ---
GPS RN NOTE: INSOMNIA PATIENT IS AWAKE, AMBULATING IN & OUT OF HER ROOM, STATED," I CAN'T SLEEP, I NEED MY SLEEPING MEDICINE." PRN RESTORIL 7.5 MG 1 CAP PO GIVEN. WILL CONTINUE TO MONITOR.
[2020-02-03 08:00] VITALS: BP 143/79
[2020-02-03] MEDS: HYDROCODONE/APAP 5/325MG TABLET PO PRN ×2 (08:20→16:34)
[2020-02-03] MEDS: DIVALPROEX SODIUM 250 MG TABLET.DR PO SCH ×3 (08:21→16:33)
[2020-02-03] MEDS: SERTRALINE HCL 50 MG TABLET PO SCH (08:21)
[2020-02-03] MEDS: MELOXICAM 7.5 MG TABLET PO SCH (08:21)
[2020-02-03] MEDS: ARIPIPRAZOLE 5 MG TABLET PO SCH ×2 (08:21→21:02)
[2020-02-03] MEDS: PREGABALIN 100 MG CAPSULE PO SCH ×3 (08:21→16:33)
[2020-02-03] MEDS: LORAZEPAM 0.5 MG TABLET PO PRN ×2 (09:35→17:40)
--- NOTE | 2020-02-03 09:35 | NUR ---
RN-CO: ATIVAN 0.5 MG PO GIVEN FOR ANXIETY MANIFESTED BY EXTREME RESTLESSNESS.
--- NOTE | 2020-02-03 14:30 | NUR ---
UR Note: DEMARCUS faxed a clinical to [facility] business case analyst, Boy ([phone]), to the fax number: [phone]. AUTH: [id number].
--- NOTE | 2020-02-03 14:31 | NUR ---
Family Contact: SW called the pts sister, Janice ([phone]), and attempted to leave a voicemail but her mailbox was full.
[2020-02-03 16:00] VITALS: BP 131/75
--- NOTE | 2020-02-03 17:56 | NUR ---
RN-CO: ATIVAN GIVEN FOR ANXIETY. PT IS VERY RESTLESS AND SCREAMING.
[2020-02-03 20:10] VITALS: BP 128/75
[2020-02-03] MEDS: ATORVASTATIN 10 MG TABLET PO SCH (21:47)
--- NOTE | 2020-02-03 23:05 | NUR ---
GPS-RN NOTE: INSOMNIA PATIENT C/O UNABLE TO SLEEP. ADMINISTERED RESTORIL 7.5MG PO ORDERED. WILL CONTINUE TO MONITOR.
--- NOTE | 2020-02-04 06:51 | NUR ---
GPS RN NOTES: PT. RESTING IN HER ROOM, NO S/S OF DISTRESS NOTED . NO CHANGE OF CONDITION NOTED, ALL CARE NEEDS MET ANTICIPATED. WILL CONTINUE TO MONITOR FOR SAFETY BEHAVIOR, AND ENDORSE TO AM SHIFT FOR CONTINUITY OF CARE.
[2020-02-04 08:00] VITALS: BP 109/57
[2020-02-04] MEDS: ARIPIPRAZOLE 5 MG TABLET PO SCH ×2 (08:45→21:03)
[2020-02-04] MEDS: DIVALPROEX SODIUM 250 MG TABLET.DR PO SCH ×3 (08:46→17:56)
[2020-02-04] MEDS: SERTRALINE HCL 50 MG TABLET PO SCH (08:46)
[2020-02-04] MEDS: MELOXICAM 7.5 MG TABLET PO SCH (08:46)
[2020-02-04] MEDS: PREGABALIN 100 MG CAPSULE PO SCH ×3 (08:46→17:55)
[2020-02-04] MEDS: HYDROCODONE/APAP 5/325MG TABLET PO PRN (08:56)
--- NOTE | 2020-02-04 08:56 | NUR ---
given norco for pain.
[2020-02-04] MEDS: LORAZEPAM 0.5 MG TABLET PO PRN (09:54)
--- NOTE | 2020-02-04 09:54 | NUR ---
given ativan for nervousness.pacing the floors
--- NOTE | 2020-02-04 12:30 | NUR ---
pacing in hallway,pleasant,cooperative.
[2020-02-04 13:56] VITALS: BP 111/79
[2020-02-04 16:00] VITALS: BP 118/71
[2020-02-04 20:00] VITALS: BP 119/66
[2020-02-04] MEDS: ATORVASTATIN 10 MG TABLET PO SCH (21:03)
[2020-02-05 08:00] VITALS: BP 129/55
[2020-02-05] MEDS: MELOXICAM 7.5 MG TABLET PO SCH (08:12)
[2020-02-05] MEDS: PREGABALIN 100 MG CAPSULE PO SCH ×3 (08:12→16:34)
[2020-02-05] MEDS: DIVALPROEX SODIUM 250 MG TABLET.DR PO SCH ×3 (08:12→16:34)
[2020-02-05] MEDS: SERTRALINE HCL 50 MG TABLET PO SCH (08:12)
[2020-02-05] MEDS: ARIPIPRAZOLE 5 MG TABLET PO SCH ×2 (08:22→21:13)
[2020-02-05] MEDS: HYDROCODONE/APAP 5/325MG TABLET PO PRN (08:23)
[2020-02-05] MEDS: LORAZEPAM 0.5 MG TABLET PO PRN (12:50)
--- NOTE | 2020-02-05 12:50 | NUR ---
RN-CO: ATIVAN PO GIVEN FOR ANXIETY AND RESTLESSNESS.
[2020-02-05 16:00] VITALS: BP 134/69
[2020-02-05 19:46] VITALS: BP 138/70
[2020-02-05] MEDS: ATORVASTATIN 10 MG TABLET PO SCH (21:13)
--- NOTE | 2020-02-06 00:22 | NUR ---
NURSE NOTES: PATIENT AMBULATED TOWARDS THE BATHROOM. NURSE WAS ON STANDBY ASSIST FOR ANY HELP THE PATIENT NEEDS. SHE WAS THEN OBSERVED BY THE NURSE THROWING HERSELF ON THE FLOOR. WHEN ASKED WHAT SHE WAS DOING, SHE ANSWERED, "I NEED TO GO TO THE BATHROOM, I AM LEGALLY BLIND AND LEGALLY DEAF, I NEED PEN AND PAPER TO COMMUNICATE WITH YOU" AT THIS POINT IN TIME, PATIENT WAS FACING THE NURSE SHE WAS TALKING AT THE SAME TIME ANSWERING THE NURSE'S QUESTIONS. REALITY ORIENTATION DONE. LIMIT SETTING DONE. NURSE TOLD PATIENT THAT SHE HAS TO BE SAFE AT ALL TIMES AND THAT SHE WILL ALWAYS BE HELPED WHEN SHE NEEDS ASSISTANCE. NURSE ASSIGNED MONITORED THIS PATIENT CLOSELY BY SITTING AT THE PATIENT'S DOOR SHE HAS THE TENDENCY TO THROW HERSELF ON THE FLOOR.
[2020-02-06] MEDS: TEMAZEPAM 7.5 MG CAPSULE PO PRN (01:15)
--- NOTE | 2020-02-06 01:17 | NUR ---
GPS-RN NOTE: INSOMNIA PATIENT C/O UNABLE TO SLEEP. ADMINISTERED RESTORIL 7.5MG PO ORDERED. WILL CONTINUE TO MONITOR.
[2020-02-06] MEDS: HYDROCODONE/APAP 5/325MG TABLET PO PRN (05:10)
--- NOTE | 2020-02-06 05:17 | NUR ---
GPS RN NOTE: PAIN PATIENT C/O RIGHT KNEE & RIGHT ARM PAIN 01/01 & WANTED TO TAKE NORCO, PRN NORCO 5-325 MG 1 TAB PO GIVEN. WILL CONTINUE TO MONITOR.
--- NOTE | 2020-02-06 06:47 | NUR ---
GPS RN NOTES: PT. BEHAVIOR UNCOOPETIVE, EASILY AGITATED PARANOID , NO S/S OF DISTRESS NOTED .NEEDS FREQUENTLY REDIRECTIONS, NO CHANGE OF CONDITION NOTED, ALL CARE NEEDS MET ANTICIPATED. WILL CONTINUE TO MONITOR FOR SAFETY BEHAVIOR, AND ENDORSE TO AM SHIFT FOR CONTINUITY OF CARE.
--- NOTE | 2020-02-06 07:25 | NUR ---
RN NOTES : PLACED CALLED TO HIS J[facility] [phone] , LEFT MESSAGE REGARDING ABOUT ADMISSION.
--- NOTE | 2020-02-06 07:38 | NUR ---
GPS RN NOTES PATIENT IN CHAIR HAVING BREAKFAST AT THIS TIME. EASILY AGITATED. NEEDS FREQUENTLY REDIRECTIONS. WILL CONTINUE TO MONITOR FOR SAFETY BEHAVIOR.
[2020-02-06 08:00] VITALS: BP 102/61
[2020-02-06] MEDS: MELOXICAM 7.5 MG TABLET PO SCH (08:21)
[2020-02-06] MEDS: PREGABALIN 100 MG CAPSULE PO SCH ×3 (08:21→16:33)
[2020-02-06] MEDS: ARIPIPRAZOLE 5 MG TABLET PO SCH ×2 (08:21→21:37)
[2020-02-06] MEDS: SERTRALINE HCL 50 MG TABLET PO SCH (08:21)
[2020-02-06] MEDS: DIVALPROEX SODIUM 250 MG TABLET.DR PO SCH ×3 (08:22→16:33)
--- NOTE | 2020-02-06 09:13 | NUR ---
UR Note: DEMARCUS faxed a clinical to [facility] assistant case manager, Boy ([phone]), to the fax number: [phone]. AUTH: [id number].
[2020-02-06 16:00] VITALS: BP 147/59
[2020-02-06] MEDS: LORAZEPAM 0.5 MG TABLET PO PRN (16:38)
--- NOTE | 2020-02-06 16:39 | NUR ---
GPS RN NOTES PATIENT GETTING AGITATED, WALKING AROUND THE CREWS YELLING FOR ATIVAN. PER CHARGE NURSE OK TO GIVE ONE DOSE PRN. WILL CONTINUE TO MONITOR.
--- NOTE | 2020-02-06 19:27 | NUR ---
GPS RN NOTES PATIENT AWAKE, SLIGHTLY AGITATED; WALKING AROUND UNIT WITH STEADY GAIT 1919; PATIENT ABLE TO FOLLOW COMMANDS AT THIS TIME; PATIENT SITTING IN BED COMFORTABLY; WILL CONT TO MONITOR
[2020-02-06 19:52] VITALS: BP 98/56
[2020-02-06] MEDS: ATORVASTATIN 10 MG TABLET PO SCH (21:37)
--- NOTE | 2020-02-07 06:55 | NUR ---
GPS RN NOTES PATIENT AMBULATING WITH WALKER THROUGHOUT UNIT, WITH STEADY GAIT; WILL CONT TO MONITOR
[2020-02-07 08:00] VITALS: BP 113/68
[2020-02-07] MEDS: DIVALPROEX SODIUM 250 MG TABLET.DR PO SCH ×3 (08:03→16:45)
[2020-02-07] MEDS: ARIPIPRAZOLE 5 MG TABLET PO SCH ×2 (08:03→21:35)
[2020-02-07] MEDS: PREGABALIN 100 MG CAPSULE PO SCH ×3 (08:04→16:45)
[2020-02-07] MEDS: SERTRALINE HCL 50 MG TABLET PO SCH (08:04)
[2020-02-07] MEDS: MELOXICAM 7.5 MG TABLET PO SCH (08:04)
[2020-02-07] MEDS: HYDROCODONE/APAP 5/325MG TABLET PO PRN (08:04)
--- NOTE | 2020-02-07 08:58 | NUR ---
UR Note: DEMARCUS faxed a clinical to [facility] correctional counselor/case manager, Boy ([phone]), to the fax number: [phone]. AUTH: [id number].
[2020-02-07] MEDS ORDERED: ARIPIPRAZOLE 5 MG TABLET PO SCH (09:00)
--- NOTE | 2020-02-07 10:12 | NUR ---
SW Coordination of Care: This publications writer contacted patient's primary doctor office Dr. Landa ([phone]) and he stated that office is closed and pt will require another primary doctor. This publications writer contacted [facility] ([phone]) and spoke with Lili clinic receptionist who scheduled apt. Patient will follow up with: Therapeutic Recreation Leader: RETAIL MANAGER IN TRAININGBree located at [facility] ([phone]) [address] [id number] on February 12 at 10:30AM. Psychiatrist: Psychiatrist Dr. Andrews located at [facility] ([phone]) [address] [place] [address] on February 16 at 11AM.
--- NOTE | 2020-02-07 10:22 | NUR ---
SW Note: This creative services writer spoke with Jaylen ([phone]) who is the portfolio administrator of pt's Independent Living and stated that he will pick patient up at 12PM.
--- NOTE | 2020-02-07 10:23 | NUR ---
DEMARCUS Family Contact: DEMARCUS contacted patients sister Janice ([phone]) and mailbox was full. This typewriter operator automatic was unable to leave a voicemail.
--- NOTE | 2020-02-07 13:44 | NUR ---
DEMARCUS Family Contact: SW contacted patients sister Janice ([phone]) and discussed patient's discharge for tomorrow 02/07/2020. Janice is aware and agreeable with discharge plan.
[2020-02-07] MEDS: LORAZEPAM 0.5 MG TABLET PO PRN ×2 (14:14→19:56)
[2020-02-07 16:00] VITALS: BP 123/70
[2020-02-07 20:00] VITALS: BP 120/69
--- NOTE | 2020-02-07 20:13 | NUR ---
ativan administered prn pt request. pt appears anxious pacing hallways requesting ativan. administered as ordered.
[2020-02-07] MEDS: ATORVASTATIN 10 MG TABLET PO SCH (21:35)
[2020-02-07] MEDS: TEMAZEPAM 7.5 MG CAPSULE PO PRN (22:07)
--- NOTE | 2020-02-08 01:14 | NUR ---
GPS RN NOTE: PT REQUESTED FOR SLEEP MEDICATION D/T INSOMNIA. AT 2207 RESTORIL 7.5MG 1 TAB GIVEN PO PRN ORDERED. PT CURRENTLY SLEEPING. NO S/S OF DISTRESS, RESPIRATION EVEN AND UNLABORED WITH EQUAL RISE AND FALL OF THE CHEST ON ROOM AIR. WILL CONTINUE TO MONITOR.
--- NOTE | 2020-02-08 07:05 | NUR ---
GPS RN CLOSING NOTES: PT IS AMBULATING WITH WALKER IN HALLWAY. PT WAS MED COMPLIANT THIS SHIFT. SLEPT FOR 7HRS. PT IS SCHEDULED TO DISCHARGE TODAY AT 12:00. NO S/S OF DISTRESS, RESPIRATION EVEN AND UNLABORED WITH EQUAL RISE AND FALL OF THE CHEST ON ROOM AIR. ALL PT CARE NEEDS MET ANTICIPATED. WILL CONTINUE TO MONITOR AND ENDORSE TO AM SHIFT.
[2020-02-08 08:00] VITALS: BP 127/83
--- NOTE | 2020-02-08 08:06 | NUR ---
SW Discharge Note: Patient will be discharged back to [facility] located at [address] [place] [address]; ([phone]). Pt can go back to her Independent Living per Jaylen ([phone]) who is the senior stock plan administrator. Per Jaylen ([phone]) he will grain picker patient at 12PM. Patients sister Janice ([phone]) is aware and agreeable. Patient is aware and agreeable with discharge plans. Patient is alert and oriented x3, is not able to plan for self-care, and denies any suicidal or homicidal ideation. Patient will follow-up with MANAGER CREATIVE, Bree Fung located at [facility] ([phone]) at [address] [place] [address] on February 12 at 10:30AM and will follow up with (psychiatrist) Dr. Andrews located at [facility] ([phone]) at [address] [place] [address] on February 16 at 11AM. Patient will follow-up Patient presents with euthymic mood and congruent affect.
[2020-02-08] MEDS: LORAZEPAM 0.5 MG TABLET PO PRN (08:21)
--- NOTE | 2020-02-08 08:21 | NUR ---
GPS/RN-NOTES PATIENT REQUESTING ATIVAN,STATED" I'M VERY ANXIOUS OF MY DISCHARGE TODAY". ATIVAN 0.5MG P.O GIVEN PRN ORDER. WILL CONT. MONITORING FOR SAFETY AND BEHAVIOR.
[2020-02-08] MEDS: ARIPIPRAZOLE 5 MG TABLET PO SCH (09:26)
[2020-02-08] MEDS: SERTRALINE HCL 50 MG TABLET PO SCH (09:27)
[2020-02-08] MEDS: DIVALPROEX SODIUM 250 MG TABLET.DR PO SCH (09:27)
[2020-02-08] MEDS: PREGABALIN 100 MG CAPSULE PO SCH (09:27)
[2020-02-08] MEDS: MELOXICAM 7.5 MG TABLET PO SCH (09:27)
--- NOTE | 2020-02-08 09:30 | NUR ---
GPS/RN-NOTES PATIENT LAYING IN BED CALM,NO ACUTE DISTRESS NOTED.
--- NOTE | 2020-02-08 12:30 | NUR ---
GPS/RN-NOTES RECEIVED DISCHARGE ORDER FROM GLENDY PENNINGTON ALSO AWARE OF THE DISCHARGE WITH ORDERS. PATIENT WAS DISCHARGE TO [facility]. PATIENT DID NOT VERBALIZE SI/HI,DENIES VISUAL/AUDITORY HALLUCINATIONS AT THE TIME OF DISCHARGE. PATIENT REFUSED TO SIGN DISCHARGE PAPERS BUT SIGN BELONGING LIST. ALL DISCHARGE MEDICATIONS WAS REVIEWED WITH THE PATIENT. PATIENT LEFT THE UNIT A/O X3 AMBULATORY USING WALKER,ALL BELONGINGS WAS GIVEN BACK TO HE INCLUDING OROZCO MONEY OF $219.00, IT WAS ENDORSE TO [facility] INCLUDING RX. PATIENT WAS WHEELED DOWN TO THE LOBBY FOR SAFETY .MASK WAS OFFERED TO THE PATIENT. 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 PER NOTES PATIENT'S SISTER RIMMA WAS MADE AWARE OF THE DISCHARGE.
== END 2020-02-08 12:30 | DRG 885 ==
LOC: ER 19:53 → GPS 01-23 01:59
PROVIDERS: ADMIT Psychiatry & Neurology Psychiatry; ATTEND Student in an Organized Health Care Education/Training Program
DX: F25.9 Schizoaffective disorder, unspecified (principal); F29 Unspecified psychosis not due to a substance or known physiological condition; F41.9 Anxiety disorder, unspecified; F17.200 Nicotine dependence, unspecified, uncomplicated; E87.6 Hypokalemia; H54.62 Unqualified visual loss, left eye, normal vision right eye; I10 Essential (primary) hypertension; Z73.6 Limitation of activities due to disability; H91.10 Presbycusis, unspecified ear
CPT/HCPCS: 36415; 70450-TC; 71045-TC; 80048-TC; 80061-TC; 80076-TC; 80164-TC; 80305; 81000-TC; 82565-TC; 82962-TC; 84484-TC; 85025-TC; 87081-TC; 97116-TC; 97530-TC; C9803-CS; G0480; J1200; J1630; J2060

== ENCOUNTER 2020-12-31 00:34 | Emergency (ER) | payer BC, MEDICARE ==
[~2020-12-31] VITALS: Ht 167.6 cm; Wt 70.3 kg
[~2020-12-31 00:34] MED LIST changes: +CLON1TAB12 PO; +HYDR-3972 PO; +MELO-107 PO; +PREG-59 PO; -PREG100C55 PO
[2020-12-31 00:35] VITALS: BP 131/75
--- NOTE | 2020-12-31 00:35 | NUR ---
PT [address]IB[address] REFUSES TO ANSWER QUESTIONS. PLACED IN BED 11 ON MONITOR AND PULSE OX. ER MD AT BEDSIDE. PT REFUSING TO TALK TO MD. AWAITING EVAL AND ORDERS. ON MONITOR AND PULSE OX.
--- NOTE | 2020-12-31 00:53 | NUR ---
BROUGHT TO CT
[2020-12-31 00:54] LABS: BASOPHILS # (AUTO) 0.1 K/uL (0.0-0.2); BASOPHILS % (AUTO) 0.9 % (0.0-2.0); EOSINOPHILS % (AUTO) 3.3 % (0.0-6.0); HEMATOCRIT 44 % (33-45); HEMOGLOBIN 14.9 g/dL (11.5-14.8); LYMPHOCYTES # (AUTO) 2.4 K/uL (0.8-4.8); LYMPHOCYTES % (AUTO) 37.1 % (20.0-44.0); MEAN CORPUSCULAR HGB CONC 34 g/dl (31.0-36.0); MEAN CORPUSCULAR VOLUME 92 fL (82-100); MONOCYTES # (AUTO) 0.3 K/uL (0.1-1.30); MONOCYTES % (AUTO) 5.3 % (2.0-12.0); NEUTROPHILS # (AUTO) 3.4 K/uL (1.8-8.9); NEUTROPHILS % (AUTO) 53.4 % (43.0-81.0); PLATELET COUNT (AUTO) 299 K/uL (150-450); RED BLOOD CELL COUNT(AUTO) 4.74 MIL/uL (4.0-5.2); WHITE BLOOD COUNT (AUTO) 6.4 K/uL (4.3-11.0)
[2020-12-31 01:18] LABS: CALCIUM, SERUM 8.8 mg/dL (8.5-10.1); CREATININE 0.6 mg/dL (0.6-1.3); POTASSIUM 3.4 mmol/L (3.5-5.1)
[2020-12-31 01:24] LABS: ALBUMIN 3.7 g/dL (3.4-5.0); BILIRUBIN,DIRECT 0.1 mg/dL (0.0-0.2); BILIRUBIN,TOTAL 0.2 mg/dL (0.2-1.0); TOTAL PROTEIN, SERUM 6.7 g/dL (6.4-8.2)
--- NOTE | 2020-12-31 02:13 | NUR ---
PT AWAKE, AAOX4. STATED "GET THE FUCK AWAY FROM ME" AMBULATORY WITH STEADY GAIT.
== END 2020-12-31 02:14 | disposition home or self-care (01) ==
LOC: ER 00:37
DX: F10.129 Alcohol abuse with intoxication, unspecified (principal); R40.4 Transient alteration of awareness; F20.9 Schizophrenia, unspecified; I10 Essential (primary) hypertension; Z79.899 Other long term (current) drug therapy; Y90.3 Blood alcohol level of 60-79 mg/100 ml
CPT/HCPCS: 36415; 70450-TC; 71045-TC; 80048-TC; 80076-TC; 82140-TC; 82962-TC; 85025-TC; G0480